=== PATIENT | female | born 1975 | race Caucasian/White ===

== ENCOUNTER 2024-01-03 17:57 | Observation (INO) | payer SELFPAY ==
[2024-01-03 18:32] LABS: Absolute Neutrophil Ct (ANC) 11.47 x10^3/uL (1.56-6.13); BASOPHIL % 0.6 % (0.1-1.2); Basophil (Absolute #) 0.08 x10^3/uL (0.01-0.08); Eosinophil (Absolute #) 0.14 x10^3/uL (0.04-0.36); Hemoglobin 14.3 g/dL (11.2-15.7); IMMATURE GRAN # 0.05 x10^3u/L (0.001-0.031); IMMATURE GRAN % 0.3 % (0.001-0.429); Lymphocyte (Absolute #) 2.09 x10^3/uL (1.18-3.74); Lymphocytes % 14.4 % (19.3-51.7); Mean Cell Volume 91.1 fL (79.4-94.8); Mean Platelet Volume 9.5 fL (9.4-12.3); Monocytes % 4.8 % (4.7-12.5); Neutrophil % 78.9 % (34.0-71.1); Platelet Count 387 x10^3/uL (182-369); Red Blood Count 4.61 x10^6/uL (3.93-5.22); White Blood Count 14.5 x10^3/uL (3.98-10.04)
[2024-01-03 18:41] LABS: HCG SERUM TEST NEGATIVE (NEGATIVE)
[2024-01-03 18:44] LABS: ALBUMIN 4.4 g/dL (3.5-5.0); ANION GAP 13.5 MEQ/L (5-15); BILIRUBIN,TOTAL 0.4 mg/dL (0.2-1.3); Calcium 9.4 mg/dL (8.4-10.2); Creatinine 1 0.93 mg/dL (0.52-1.04); EST GLOMERULAR FILTRATION RATE 75.8 ML/MIN; Potassium 3.3 mmol/L (3.5-5.1); Total Protein 7.8 g/dL (6.3-8.2)
--- NOTE | 2024-01-03 18:48 | ERPHSYRPT ---
- History of Present Illness Time Seen by Provider: 01/03/24 18:11 Historian: patient Exam Limitations: no limitations Patient Subjective Stated Complaint: C/O chest pain that started 3 days ago. Indicates pain started while at rest; no physical exertion. Triage Nursing Assessment: Patient is alert and oriented. She ambulated back to ER without difficulties. No SOB at this time. NO edema. Physician History: 48 years old female with history of hypertension, GERD presented in the ER with complaint of substernal chest pain off and on for the last 3 days with progressive worsening prior to arrival. Reports dull aching pain with no significant aggravating or relieving factors. Reports no palpitations or difficulty breathing associated with it. Reports some nausea but no vomiting. Denies any abdominal pain. No history of DVT/PE. No history of coronary artery disease. Nitro Today/Relief: no nitro taken today Aspirin Treatment Today: no aspirin today Allergies/Adverse Reactions: No Known Drug Allergies Allergy (Verified 01/04/24 00:03) Home Medications: Metoprolol Tartrate 50 mg [Lopressor 50 MG] 50 mg PO BID 01/03/24 [History] lisinopriL [Lisinopril] 40 mg PO DAILY 01/03/24 [History] Hx Tetanus, Diphtheria Vaccination/Date Given: Yes Hx Influenza Vaccination/Date Given: No Hx Pneumococcal Vaccination/Date Given: No Immunizations Up to Date: Yes Travel Risk - International Travel Have you traveled outside of the country in past 3 weeks: No - Emerging Infectious Disease Are you exhibiting symptoms associated with any current EIDs: No - Review of Systems Constitutional: No Symptoms Ears, Nose, & Throat: No Symptoms Respiratory: No Symptoms Cardiac: Chest Pain Abdominal/Gastrointestinal: Nausea Genitourinary Symptoms: No Symptoms Musculoskeletal: No Symptoms Neurological: No Symptoms Endocrine: No Symptoms Hematologic/Lymphatic: No Symptoms Immunological/Allergic: No Symptoms - Past Medical History Pertinent Past Medical History: Yes Cardiac History: Hypertension Musculoskeletal History: Fractures GI Medical History: Gallbladder Disease Other Medical History: mitralve value, menstral migraines - Past Surgical History Past Surgical History: Yes Gastrointestinal: Cholecystectomy - Female History Hx Now: No - Social History Smoking Status: Former smoker Exposure to second hand smoke: No Drug Use: none - Social Determinants of Health Will the patient participate in the screening: Yes Do you worry about a steady place to live?: No Do you have any problems with any of the following?: No known problems In the past 12 months,have you had to go without utilities?: No Transportation Issues: No Has anyone in your support network made you feel unsafe?: No Have you or anyone in your house had to go without enough: No - Nursing Vital Signs Nursing Vital Signs: Initial Vital Signs Temperature 97.7 F 01/03/24 18:20 Pulse Rate 90 01/03/24 18:20 Respiratory Rate 21 01/03/24 18:20 Blood Pressure 185/108 01/03/24 18:20 O2 Sat by Pulse Oximetry 94 L 01/03/24 18:20 Pain Scale Pain Intensity 2 - Physical Exam General Appearance: no apparent distress, alert Eye Exam: PERRL/EOMI Ears, Nose, Throat Exam: normal ENT inspection Neck Exam: normal inspection, full range of motion Respiratory Exam: normal breath sounds, lungs clear Cardiovascular Exam: regular rate/rhythm, normal heart sounds Gastrointestinal/Abdomen Exam: soft, normal bowel sounds, No tenderness Back Exam: normal inspection Extremity Exam: normal inspection, normal range of motion Neurologic Exam: alert, oriented x 3, cooperative Skin Exam: normal color SpO2 Interpretation: normal SpO2: 96 O2 Delivery: Room Air - Course EKG Interpreted by Me: RATE (94), Sinus Rhythm, NORMAL AXIS, NORMAL INTERVALS, Non-specific ST Changes Ordered Tests: Medication Summary Generic Name Dose Route Start Last Admin Trade Name Freq PRN Reason Stop Dose Admin Acetaminophen 325 mg 01/04/24 00:19 01/05/24 00:57 Acetaminophen 325 Mg Tablet PO 02/03/24 00:18 325 mg Q4H PRN PRN Administration PAIN, FEVER, HEADACHE Hydrocodone Bitart/Acetaminophen 1 tab 01/05/24 01:26 01/05/24 08:11 Hydrocodone/Apap 5/325 1 Tab Tablet PO 01/10/24 01:25 1 tab Q6H PRN PRN Administration PAIN Amlodipine Besylate 10 mg 01/05/24 10:00 01/05/24 10:05 Amlodipine Besylate 5 Mg Tablet PO 02/04/24 09:59 10 mg QAM LUIS Administration Enoxaparin Sodium 40 mg 01/04/24 10:00 01/05/24 10:05 Enoxaparin Sodium 40 Mg/0.4 Ml Syringe SQ 02/03/24 09:59 40 mg DAILY LUIS Administration Hydromorphone HCl 0.5 mg 01/04/24 00:21 01/04/24 05:00 Hydromorphone 1 Mg/1ml Inj IV 01/09/24 00:20 0.5 mg Q4H PRN PRN Administration PAIN Lisinopril 40 mg 01/04/24 10:00 01/05/24 10:05 Lisinopril 20 Mg Tablet PO 02/03/24 09:59 40 mg DAILY LUIS Administration Metoprolol Succinate 100 mg 01/05/24 22:00 Metoprolol Succinate 100 Mg Tablet.Sa PO 02/04/24 21:59 BID LUIS Metoprolol Tartrate 50 mg 01/05/24 12:58 Metoprolol Tartrate 50 Mg Tablet PO 01/05/24 12:59 STAT ONE Ondansetron HCl 4 mg 01/05/24 09:20 Ondansetron Hcl 4 Mg/2 Ml Vial IV 02/04/24 09:19 Q6H PRN PRN NAUSEA/VOMITING Pantoprazole Sodium 40 mg 01/04/24 10:00 01/05/24 10:04 Protonix (Pantoprazole) 40 Mg Tablet PO 02/03/24 09:59 40 mg DAILY LUIS Administration Discontinued Medications Generic Name Dose Route Start Last Admin Trade Name Freq PRN Reason Stop Dose Admin Al Hydrox/Mg Hydrox/Simethicone Confirm 01/03/24 19:00 Mag Hydrox/Al Hydrox/Simeth 30 Ml Udcup Administered 01/03/24 19:01 Dose 30 ml .ROUTE .STK-MED ONE Amlodipine Besylate 5 mg 01/05/24 10:00 Amlodipine Besylate 5 Mg Tablet PO 02/04/24 09:59 QAM LUIS Amlodipine Besylate 5 mg 01/04/24 13:20 01/04/24 14:40 Amlodipine Besylate 5 Mg Tablet PO 01/04/24 13:21 5 mg STAT ONE Administration Aspirin 324 mg 01/03/24 18:48 01/03/24 19:01 Aspirin 81 Mg Tab.Chew PO 01/03/24 18:49 324 mg STAT ONE Administration Aspirin Confirm 01/03/24 18:59 Aspirin 81 Mg Tab.Chew Administered 01/03/24 19:00 Dose 324 mg .ROUTE .STK-MED ONE Clonidine 0.1 mg 01/04/24 10:00 01/04/24 06:03 Clonidine Hcl 0.1 Mg Tablet PO 02/03/24 09:59 0.1 mg BID LUIS Administration Hydralazine HCl 10 mg 01/04/24 16:15 01/05/24 00:45 Hydralazine Hcl 20 Mg/Ml Vial IV 02/03/24 16:14 10 mg Q6H PRN PRN Administration Hydralazine HCl 50 mg 01/05/24 01:24 Hydralazine Hcl 25 Mg Tablet PO 02/04/24 01:23 Q6H PRN systolic blood pressure > 170 Hydrochlorothiazide 12.5 mg 01/05/24 10:00 01/05/24 10:05 Hydrochlorothiazide 25 Mg Tablet PO 02/04/24 09:59 12.5 mg DAILY LUIS Administration Hydrochlorothiazide 12.5 mg 01/04/24 13:30 01/04/24 14:40 Hydrochlorothiazide 25 Mg Tablet PO 01/04/24 13:31 12.5 mg STAT ONE Administration Sodium Chloride 1,000 mls @ 999 mls/hr 01/03/24 23:03 01/03/24 23:10 Sodium Chloride 0.9% 1000 Ml IV 01/04/24 00:03 999 mls/hr .Q1H1M STA Administration Sodium Chloride Confirm 01/03/24 23:03 Sodium Chloride 0.9% 1000 Ml Administered 01/03/24 23:04 Dose 1,000 mls @ ud .ROUTE .STK-MED ONE Potassium Chloride/Sodium Chloride 1,000 mls @ 75 mls/hr 01/04/24 00:30 01/05/24 03:06 Sodium Chloride 0.45% W/ 20 Meq Kcl IV 02/03/24 00:29 75 mls/hr .[id number] LUIS Administration Labetalol HCl 10 mg 01/03/24 20:31 01/03/24 20:35 Labetalol Hcl 20 Mg/4 Ml Disp.Syringe IV 01/03/24 20:32 10 mg STAT ONE Administration Labetalol HCl Confirm 01/03/24 20:34 Labetalol Hcl 20 Mg/4 Ml Disp.Syringe Administered 01/03/24 20:35 Dose 20 mg IV .STK-MED ONE Labetalol HCl 20 mg 01/04/24 04:30 01/04/24 04:40 Labetalol Hcl 20 Mg/4 Ml Disp.Syringe IV 02/03/24 04:29 20 mg STAT PRN Administration ELEVATED BLOOD PRESSURE Lidocaine HCl Confirm 01/03/24 19:00 Lidocaine Hcl 2% Viscous 15 Ml Udcup Administered 01/03/24 19:01 Dose 15 ml .ROUTE .STK-MED ONE Magnesium Hydroxide 45 ml 01/03/24 18:47 01/03/24 19:03 Mag Hydrx/Alum Hyd/Simeth/Lido 45 Ml Bottle PO 01/03/24 18:48 45 ml STAT ONE Administration Metoprolol Tartrate 50 mg 01/04/24 10:00 01/05/24 10:05 Metoprolol Tartrate 50 Mg Tablet PO 02/03/24 09:59 50 mg BID LUIS Administration Metoprolol Tartrate Confirm 01/04/24 00:33 Metoprolol Tartrate 50 Mg Tablet Administered 01/04/24 00:34 Dose 50 mg .ROUTE .STK-MED ONE Morphine Sulfate 4 mg 01/03/24 21:15 01/03/24 21:18 Morphine Sulfate 4 Mg/Ml Injection IV 01/03/24 21:16 4 mg STAT ONE Administration Morphine Sulfate Confirm 01/03/24 21:17 Morphine Sulfate 4 Mg/Ml Injection Administered 01/03/24 21:18 Dose 4 mg .ROUTE .STK-MED ONE Ondansetron HCl 4 mg 01/03/24 21:15 01/03/24 21:18 Ondansetron Hcl 4 Mg/2 Ml Vial IV 01/03/24 21:16 4 mg STAT ONE Administration Ondansetron HCl Confirm 01/03/24 21:17 Ondansetron Hcl 4 Mg/2 Ml Vial Administered 01/03/24 21:18 Dose 4 mg .ROUTE .STK-MED ONE Pantoprazole Sodium 40 mg 01/03/24 18:47 01/03/24 19:02 Pantoprazole 40 Mg Vial IV 01/03/24 18:48 40 mg STAT ONE Administration Pantoprazole Sodium Confirm 01/03/24 19:00 Pantoprazole 40 Mg Vial Administered 01/03/24 19:01 Dose 40 mg IV .STK-MED ONE Lab/Rad Data: Laboratory Result Diagrams 01/03/24 18:27 01/03/24 18:27 Laboratory Results 01/03/24 01/03/24 01/03/24 Range/Units 21:56 20:30 18:27 WBC (3.98-10.04) x10^3/uL RBC (3.93-5.22) x10^6/uL Hgb (11.2-15.7) g/dL Hct (34.1-44.9) % MCV (79.4-94.8) fL MCH (25.6-32.2) pg MCHC (32.2-35.5) g/dL RDW (11.7-14.4) % Plt Count (182-369) x10^3/uL MPV (9.4-12.3) fL Gran % (34.0-71.1) % Immature Gran % (Auto) (0.001-0.429) % Nucleat RBC Rel Count (0.00-0.2) % Eos # (Auto) (0.04-0.36) x10^3/uL Immature Gran # (Auto) (0.001-0.031) x10^3u/L Absolute Lymphs (auto) (1.18-3.74) x10^3/uL Absolute Monos (auto) (0.24-0.86) x10^3/uL Absolute Nucleated RBC (0.00-0.012) x10^3u/L Lymphocytes % (19.3-51.7) % Monocytes % (4.7-12.5) % Eosinophils % (0.7-5.8) % Basophils % (0.1-1.2) % Absolute Granulocytes (1.56-6.13) x10^3/uL Basophils # (0.01-0.08) x10^3/uL D-Dimer (0.0-0.50) mg/L Sodium (135-145) mmol/L Potassium (3.5-5.1) mmol/L Chloride (98-107) mmol/L Carbon Dioxide (22-30) mmol/L Anion Gap (5-15) MEQ/L BUN (7-17) mg/dL Creatinine (0.52-1.04) mg/dL Estimated GFR ML/MIN Glucose (74-106) mg/dL Calcium (8.4-10.2) mg/dL Total Bilirubin (0.2-1.3) mg/dL AST (14-36) U/L ALT (0-35) U/L Alkaline Phosphatase (38-126) U/L Troponin I < 0.012 (0.000-0.033) ng/mL Serum Total Protein (6.3-8.2) g/dL Albumin (3.5-5.0) g/dL Amylase 80 (30-110) U/L Lipase (23-300) U/L Serum HCG, Qual (NEGATIVE) Urine Opiates Level NEGATIVE (NEGATIVE) Ur Methadone NEGATIVE (NEGATIVE) Urine Barbiturates NEGATIVE (NEGATIVE) Ur Phencyclidine (PCP) NEGATIVE (NEGATIVE) Urine Amphetamine NEGATIVE (NEGATIVE) U Benzodiazepine Level NEGATIVE (NEGATIVE) Urine Cocaine NEGATIVE (NEGATIVE) Urine Marijuana (THC) NEGATIVE (NEGATIVE) 01/03/24 01/03/24 01/03/24 Range/Units 18:27 18:27 18:27 WBC (3.98-10.04) x10^3/uL RBC (3.93-5.22) x10^6/uL Hgb (11.2-15.7) g/dL Hct (34.1-44.9) % MCV (79.4-94.8) fL MCH (25.6-32.2) pg MCHC (32.2-35.5) g/dL RDW (11.7-14.4) % Plt Count (182-369) x10^3/uL MPV (9.4-12.3) fL Gran % (34.0-71.1) % Immature Gran % (Auto) (0.001-0.429) % Nucleat RBC Rel Count (0.00-0.2) % Eos # (Auto) (0.04-0.36) x10^3/uL Immature Gran # (Auto) (0.001-0.031) x10^3u/L Absolute Lymphs (auto) (1.18-3.74) x10^3/uL Absolute Monos (auto) (0.24-0.86) x10^3/uL Absolute Nucleated RBC (0.00-0.012) x10^3u/L Lymphocytes % (19.3-51.7) % Monocytes % (4.7-12.5) % Eosinophils % (0.7-5.8) % Basophils % (0.1-1.2) % Absolute Granulocytes (1.56-6.13) x10^3/uL Basophils # (0.01-0.08) x10^3/uL D-Dimer (0.0-0.50) mg/L Sodium (135-145) mmol/L Potassium (3.5-5.1) mmol/L Chloride (98-107) mmol/L Carbon Dioxide (22-30) mmol/L Anion Gap (5-15) MEQ/L BUN (7-17) mg/dL Creatinine (0.52-1.04) mg/dL Estimated GFR ML/MIN Glucose (74-106) mg/dL Calcium (8.4-10.2) mg/dL Total Bilirubin (0.2-1.3) mg/dL AST (14-36) U/L ALT (0-35) U/L Alkaline Phosphatase (38-126) U/L Troponin I < 0.012 (0.000-0.033) ng/mL Serum Total Protein (6.3-8.2) g/dL Albumin (3.5-5.0) g/dL Amylase (30-110) U/L Lipase 357 H (23-300) U/L Serum HCG, Qual NEGATIVE (NEGATIVE) Urine Opiates Level (NEGATIVE) Ur Methadone (NEGATIVE) Urine Barbiturates (NEGATIVE) Ur Phencyclidine (PCP) (NEGATIVE) Urine Amphetamine (NEGATIVE) U Benzodiazepine Level (NEGATIVE) Urine Cocaine (NEGATIVE) Urine Marijuana (THC) (NEGATIVE) 01/03/24 01/03/24 01/03/24 Range/Units 18:27 18:27 18:27 WBC 14.5 H (3.98-10.04) x10^3/uL RBC 4.61 (3.93-5.22) x10^6/uL Hgb 14.3 (11.2-15.7) g/dL Hct 42.0 (34.1-44.9) % MCV 91.1 (79.4-94.8) fL MCH 31.0 (25.6-32.2) pg MCHC 34.0 (32.2-35.5) g/dL RDW 12.0 (11.7-14.4) % Plt Count 387 H (182-369) x10^3/uL MPV 9.5 (9.4-12.3) fL Gran % 78.9 H (34.0-71.1) % Immature Gran % (Auto) 0.3 (0.001-0.429) % Nucleat RBC Rel Count 0.0 (0.00-0.2) % Eos # (Auto) 0.14 (0.04-0.36) x10^3/uL Immature Gran # (Auto) 0.05 H (0.001-0.031) x10^3u/L Absolute Lymphs (auto) 2.09 (1.18-3.74) x10^3/uL Absolute Monos (auto) 0.70 (0.24-0.86) x10^3/uL Absolute Nucleated RBC 0.00 (0.00-0.012) x10^3u/L Lymphocytes % 14.4 L (19.3-51.7) % Monocytes % 4.8 (4.7-12.5) % Eosinophils % 1.0 (0.7-5.8) % Basophils % 0.6 (0.1-1.2) % Absolute Granulocytes 11.47 H (1.56-6.13) x10^3/uL Basophils # 0.08 (0.01-0.08) x10^3/uL D-Dimer 0.90 H* (0.0-0.50) mg/L Sodium 137 (135-145) mmol/L Potassium 3.3 L (3.5-5.1) mmol/L Chloride 101 (98-107) mmol/L Carbon Dioxide 25 (22-30) mmol/L Anion Gap 13.5 (5-15) MEQ/L BUN 14 (7-17) mg/dL Creatinine 0.93 (0.52-1.04) mg/dL Estimated GFR 75.8 ML/MIN Glucose 151 H (74-106) mg/dL Calcium 9.4 (8.4-10.2) mg/dL Total Bilirubin 0.40 (0.2-1.3) mg/dL AST 29 (14-36) U/L ALT 34 (0-35) U/L Alkaline Phosphatase 61 (38-126) U/L Troponin I (0.000-0.033) ng/mL Serum Total Protein 7.8 (6.3-8.2) g/dL Albumin 4.4 (3.5-5.0) g/dL Amylase (30-110) U/L Lipase (23-300) U/L Serum HCG, Qual (NEGATIVE) Urine Opiates Level (NEGATIVE) Ur Methadone (NEGATIVE) Urine Barbiturates (NEGATIVE) Ur Phencyclidine (PCP) (NEGATIVE) Urine Amphetamine (NEGATIVE) U Benzodiazepine Level (NEGATIVE) Urine Cocaine (NEGATIVE) Urine Marijuana (THC) (NEGATIVE) - Progress Progress: improved, re-examined Air Movement: good Progress Note: 01/03/24 23:45 48 years old is evaluated for chest pain. The EKG is normal sinus rhythm with no ST elevations. She is given aspirin, GI cocktail and Protonix, on reevaluation her pain is minimally improved. Initial troponins are negative. Has a white count of 14, fairly unremarkable chemistries except for minimally elevated lipase of 357 with a normal amylase. Has elevated D-dimer and CTA is negative for pulmonary embolism or any other acute intrathoracic findings. Patient blood pressure was in 200s with a heart rate in low 100s/upper 90s, given labetalol 10 mg IV and pain medications later as patient initially did not want anything for pain. On reevaluation her blood pressure dropped and he 80s, started on fluids, it improved within few minutes to 123 systolic. Patient pain is still there but much improved. I believe patient drop of blood pressure is secondary to combination of labetalol and morphine. Second troponin came back negative as well. Because of patient's persistent pain and labile blood pressure, I have discussed with Dr. Trinh, reviewed history, workup and patient is accepted for admission. I have discussed the results of workup and plan of admission with patient and family which they understand and agree. 01/03/24 23:45 Blood Culture(s) Obtained: No Antibiotics given: No Discussed with : Other (Dr. Trinh hospitalist) Will see patient in: hospital (observation) Counseled pt/family regarding: lab results, diagnosis, rad results Medical Desision Making - Independent Historian Additional History obtained from: Spouse - Discussion of managment Care discussed with:: hospitalist Reviewed:: Test results Agreed on:: Treatment plan, place in obs Will see patient: in hospital - Diagnostic Testing Diagnostic test were ordered, analyzed, and reviewed by me: Yes Radiological Interpretation: Reviewed by me - Risk of complications The pt has a mod risk of morbidity or mortality based on: Need for prescription drug management The pt has a high risk of morbidity or mortality based on: Decision regarding hospitilization or escalation of hosp level of care - Departure Departure Disposition: Observation Clinical Impression: Uncontrolled hypertension, Chest pain Condition: Stable Critical Care Time: No
[2024-01-03] MEDS ORDERED: BABY ASPIRIN 81 MG CHEW ONE (18:59)
[2024-01-03] MEDS ORDERED: XYLOCAINE VISCOUS 2% 15 ML CUP ONE (19:00)
[2024-01-03] MEDS ORDERED: PROTONIX 40 MG IV IV ONE (19:00)
[2024-01-03] MEDS ORDERED: MAALOX ES 30 ML UNIT DOSE ONE (19:00)
[2024-01-03] MEDS: BABY ASPIRIN 81 MG CHEW PO ONE (19:01)
[2024-01-03] MEDS: PROTONIX 40 MG IV IV ONE (19:02)
[2024-01-03] MEDS: GI COCKTAIL 45 ML (Maalox/Lidocaine) PO ONE (19:03)
[2024-01-03] MEDS ORDERED: TRANDATE 20 MG/4 ML SYRINGE IV ONE (20:34)
[2024-01-03] MEDS: TRANDATE 20 MG/4 ML SYRINGE IV ONE (20:35)
[2024-01-03] MEDS ORDERED: MORPHINE SULFATE 4 MG INJ ONE (21:17)
[2024-01-03] MEDS ORDERED: Zofran 4 MG/2 ML VIAL ONE (21:17)
[2024-01-03] MEDS: MORPHINE SULFATE 4 MG INJ IV ONE (21:18)
[2024-01-03] MEDS: Zofran 4 MG/2 ML VIAL IV ONE (21:18)
[2024-01-03] MEDS ORDERED: Sodium Chloride 0.9% 1000 ML 1,000 ML ONE (23:03)
[2024-01-03] MEDS: Sodium Chloride 0.9% 1000 ML 1,000 ML IV STA (23:10)
--- NOTE | 2024-01-03 23:32 | XRAY ---
Indication: Chest pain 3 days. Elevated d-dimer. Multiple contiguous axial images obtained through the chest using 80 cc of Isovue-370 contrast and PE protocol. Comparison: None Adequate opacification pulmonary arteries to include the lobar and segmental branches. No pulmonary embolus. Heart is enlarged. Aorta is normal in course and caliber. Tiny mediastinal calcified node. No pathologic mediastinal/hilar lymphadenopathy. Lungs demonstrates small right upper lobe calcified granuloma and minimal bilateral dependent atelectasis. No suspicious pulmonary mass/nodule, infiltrate, or effusion. Bony thorax intact. Limited upper abdomen demonstrates mild fatty liver and cholecystectomy. Impression: 1. Negative pulmonary embolus. No acute cardiopulmonary abnormalities. 2. Incidental cardiomegaly, fatty liver, and old granulomatous disease.
[2024-01-04] MEDS ORDERED: Lopressor 50 MG ONE (00:33)
[2024-01-04] MEDS: Hydromorphone 1 mg/ml Injection IV PRN (00:34)
[2024-01-04] MEDS: Lopressor 50 MG PO SCH (00:35)
--- NOTE | 2024-01-04 00:41 | PCM.HP ---
History of Present Illness - Chief Complaint Chief Complaint: chest pain rule out Date: 01/03/24 History of Present Illness: Ms. MCKENZIE is a 48 year old female with a past medical history significant for hypertension, hyperlipidemia and obesity who presented to the hospital with complaints of chest pain on her L substernal region without radiation. She was initially markedly hypertensive with blood pressures in the 200 range, then received Labetalol IV as well as some morphine and protonix as GI cocktail. Her blood pressure then dropped into the 80s systolically. She is currently resting in bed, awake/alert. Still having some chest pain, rated 4/10 in severity. No fever/chills. No palpitations. No shortness of breath. No nausea, vomiting or diarrhea. No dysuria, hematuria or foamy urine. CTA chest negative for PE. First set of cardiac enzymes negative. - Review of Systems Constitutional: No Fever, No Chills Eyes: No Vision Changes Ears, Nose, & Throat: No Epistaxis Respiratory: No Cough, No Orthopnea, No Short Of Breath Cardiac: Chest Pain, No Edema, No Palpitations Abdominal/Gastrointestinal: No Abdominal Pain, No Nausea, No Vomiting, No Diarrhea Genitourinary Symptoms: No Dysuria, No Hematuria Musculoskeletal: No Arthralgias Skin: No Cellulitis, No Rash Neurological: Dizziness Psychological: No Suicidal Ideations Endocrine: No Polyuria, No Polydipsia Medications & Allergies Home Medications: Home Medication List Metoprolol Tartrate 50 mg [Lopressor 50 MG] 50 mg PO BID 01/03/24 [History Confirmed 01/04/24] lisinopriL [Lisinopril] 40 mg PO DAILY 01/03/24 [History Confirmed 01/04/24] Allergies/Adverse Reactions: Allergies Allergy/AdvReac Type Severity Reaction Status Date / Time No Known Drug Allergies Allergy Verified 01/04/24 00:03 - Past Medical History Past Medical History: Yes Neurological History: Migraines ENT History: Other Cardiac History: Hypertension Respiratory History: No Pertinent History Endocrine Medical History: No Pertinent History Musculoskelatal History: Fractures GI Medical History: Gallbladder Disease History: No Pertinent History Pyscho-Social History: No Pertinent History Reproductive Disorders: Menstrual Problems Comment: mitralve value, menstral migraines, right eye had blood vessel burst - Female History Are you now?: No - Past Surgical History Past Surgical History: Yes Neuro Surgical History: No Pertinent History Cardiac History: No Pertinent History Respiratory Surgery: No Pertinent History GI Surgical History: Cholecystectomy Genitourinary Surgical Hx: No Pertinent History Musculskeletal Surgical Hx: No Pertinent History Female Surgical History: No Pertinent History Other Surgical History: N/V after anesthesia - Social History Smoking Status: Former smoker How long have you smoked: 3 yrs Exposure to second hand smoke: No Alcohol: None Drug Use: none - Social Determinants of Health Will the patient participate in the screening: Yes Do you worry about a steady place to live?: No Do you have any problems with any of the following?: No known problems In the past 12 months,have you had to go without utilities?: No Have you or anyone in your house had to go without enough: No Transportation Issues: No Has anyone in your support network made you feel unsafe?: No Does the patient want assistance with any of the above?: No - Physical Exam Vital Signs: Vital Signs - 24 hr Temp Pulse Resp BP BP BP Pulse Ox 01/04/24 00:08 98 F 90 18 185/87 90 L 01/03/24 23:54 96 01/03/24 23:20 83 14 135/78 95 01/03/24 23:14 84 16 123/75 94 L 01/03/24 23:09 81 15 100/62 95 01/03/24 23:07 78 16 94/57 96 01/03/24 23:04 69 15 87/56 96 01/03/24 23:02 66 10 L 82/51 93 L 01/03/24 23:00 59 L 12 85/51 93 L 01/03/24 22:57 59 L 10 L 108/68 93 L 01/03/24 22:50 79 16 135/78 95 01/03/24 22:40 96 H 19 156/92 94 L 01/03/24 22:30 98 H 13 170/102 95 01/03/24 22:20 96 H 15 165/87 97 01/03/24 22:10 101 H 14 174/106 95 01/03/24 22:00 94 H 13 174/112 94 L 01/03/24 21:50 94 H 18 170/98 93 L 01/03/24 21:40 90 13 163/100 93 L 01/03/24 21:31 88 16 155/94 93 L 01/03/24 21:20 90 16 190/112 90 L 01/03/24 21:11 91 H 13 175/113 96 01/03/24 21:01 91 H 21 185/113 95 01/03/24 20:50 98.6 F 87 18 189/102 94 L 01/03/24 20:41 98 H 14 154/95 93 L 01/03/24 20:31 85 18 197/125 95 01/03/24 20:17 95 H 21 204/116 95 01/03/24 20:01 85 16 185/113 96 01/03/24 19:46 88 16 175/123 96 01/03/24 19:45 87 15 94 L 01/03/24 19:40 85 19 95 01/03/24 19:39 86 01/03/24 19:16 174/110 01/03/24 19:00 85 14 194/106 95 01/03/24 18:30 82 16 184/119 96 01/03/24 18:20 97.7 F 90 21 185/108 94 L General Appearance: no apparent distress Neurologic Exam: alert, oriented x 3 Ears, Nose, Throat Exam: dry mucous membranes Neck Exam: supple Respiratory Exam: lungs clear, No respiratory distress Cardiovascular Exam: regular rate/rhythm Gastrointestinal/Abdomen Exam: soft Extremity Exam: No pedal edema, No swelling Skin Exam: normal color, No rash Results - Labs Lab/Micro Results: Lab Results-Last 24 Hours 01/03/24 01/03/24 01/03/24 Range/Units 18:27 18:27 18:27 WBC 14.5 H (3.98-10.04) x10^3/uL RBC 4.61 (3.93-5.22) x10^6/uL Hgb 14.3 (11.2-15.7) g/dL Hct 42.0 (34.1-44.9) % MCV 91.1 (79.4-94.8) fL MCH 31.0 (25.6-32.2) pg MCHC 34.0 (32.2-35.5) g/dL RDW 12.0 (11.7-14.4) % Plt Count 387 H (182-369) x10^3/uL MPV 9.5 (9.4-12.3) fL Gran % 78.9 H (34.0-71.1) % Immature Gran % (Auto) 0.3 (0.001-0.429) % Nucleat RBC Rel Count 0.0 (0.00-0.2) % Eos # (Auto) 0.14 (0.04-0.36) x10^3/uL Immature Gran # (Auto) 0.05 H (0.001-0.031) x10^3u/L Absolute Lymphs (auto) 2.09 (1.18-3.74) x10^3/uL Absolute Monos (auto) 0.70 (0.24-0.86) x10^3/uL Absolute Nucleated RBC 0.00 (0.00-0.012) x10^3u/L Lymphocytes % 14.4 L (19.3-51.7) % Monocytes % 4.8 (4.7-12.5) % Eosinophils % 1.0 (0.7-5.8) % Basophils % 0.6 (0.1-1.2) % Absolute Granulocytes 11.47 H (1.56-6.13) x10^3/uL Basophils # 0.08 (0.01-0.08) x10^3/uL D-Dimer 0.90 H* (0.0-0.50) mg/L Sodium 137 (135-145) mmol/L Potassium 3.3 L (3.5-5.1) mmol/L Chloride 101 (98-107) mmol/L Carbon Dioxide 25 (22-30) mmol/L Anion Gap 13.5 (5-15) MEQ/L BUN 14 (7-17) mg/dL Creatinine 0.93 (0.52-1.04) mg/dL Estimated GFR 75.8 ML/MIN Glucose 151 H (74-106) mg/dL Calcium 9.4 (8.4-10.2) mg/dL Total Bilirubin 0.40 (0.2-1.3) mg/dL AST 29 (14-36) U/L ALT 34 (0-35) U/L Alkaline Phosphatase 61 (38-126) U/L Troponin I (0.000-0.033) ng/mL Serum Total Protein 7.8 (6.3-8.2) g/dL Albumin 4.4 (3.5-5.0) g/dL Amylase (30-110) U/L Lipase (23-300) U/L Serum HCG, Qual (NEGATIVE) 01/03/24 01/03/24 01/03/24 Range/Units 18:27 18:27 18:27 WBC (3.98-10.04) x10^3/uL RBC (3.93-5.22) x10^6/uL Hgb (11.2-15.7) g/dL Hct (34.1-44.9) % MCV (79.4-94.8) fL MCH (25.6-32.2) pg MCHC (32.2-35.5) g/dL RDW (11.7-14.4) % Plt Count (182-369) x10^3/uL MPV (9.4-12.3) fL Gran % (34.0-71.1) % Immature Gran % (Auto) (0.001-0.429) % Nucleat RBC Rel Count (0.00-0.2) % Eos # (Auto) (0.04-0.36) x10^3/uL Immature Gran # (Auto) (0.001-0.031) x10^3u/L Absolute Lymphs (auto) (1.18-3.74) x10^3/uL Absolute Monos (auto) (0.24-0.86) x10^3/uL Absolute Nucleated RBC (0.00-0.012) x10^3u/L Lymphocytes % (19.3-51.7) % Monocytes % (4.7-12.5) % Eosinophils % (0.7-5.8) % Basophils % (0.1-1.2) % Absolute Granulocytes (1.56-6.13) x10^3/uL Basophils # (0.01-0.08) x10^3/uL D-Dimer (0.0-0.50) mg/L Sodium (135-145) mmol/L Potassium (3.5-5.1) mmol/L Chloride (98-107) mmol/L Carbon Dioxide (22-30) mmol/L Anion Gap (5-15) MEQ/L BUN (7-17) mg/dL Creatinine (0.52-1.04) mg/dL Estimated GFR ML/MIN Glucose (74-106) mg/dL Calcium (8.4-10.2) mg/dL Total Bilirubin (0.2-1.3) mg/dL AST (14-36) U/L ALT (0-35) U/L Alkaline Phosphatase (38-126) U/L Troponin I < 0.012 (0.000-0.033) ng/mL Serum Total Protein (6.3-8.2) g/dL Albumin (3.5-5.0) g/dL Amylase (30-110) U/L Lipase 357 H (23-300) U/L Serum HCG, Qual NEGATIVE (NEGATIVE) 01/03/24 01/03/24 Range/Units 18:27 21:56 WBC (3.98-10.04) x10^3/uL RBC (3.93-5.22) x10^6/uL Hgb (11.2-15.7) g/dL Hct (34.1-44.9) % MCV (79.4-94.8) fL MCH (25.6-32.2) pg MCHC (32.2-35.5) g/dL RDW (11.7-14.4) % Plt Count (182-369) x10^3/uL MPV (9.4-12.3) fL Gran % (34.0-71.1) % Immature Gran % (Auto) (0.001-0.429) % Nucleat RBC Rel Count (0.00-0.2) % Eos # (Auto) (0.04-0.36) x10^3/uL Immature Gran # (Auto) (0.001-0.031) x10^3u/L Absolute Lymphs (auto) (1.18-3.74) x10^3/uL Absolute Monos (auto) (0.24-0.86) x10^3/uL Absolute Nucleated RBC (0.00-0.012) x10^3u/L Lymphocytes % (19.3-51.7) % Monocytes % (4.7-12.5) % Eosinophils % (0.7-5.8) % Basophils % (0.1-1.2) % Absolute Granulocytes (1.56-6.13) x10^3/uL Basophils # (0.01-0.08) x10^3/uL D-Dimer (0.0-0.50) mg/L Sodium (135-145) mmol/L Potassium (3.5-5.1) mmol/L Chloride (98-107) mmol/L Carbon Dioxide (22-30) mmol/L Anion Gap (5-15) MEQ/L BUN (7-17) mg/dL Creatinine (0.52-1.04) mg/dL Estimated GFR ML/MIN Glucose (74-106) mg/dL Calcium (8.4-10.2) mg/dL Total Bilirubin (0.2-1.3) mg/dL AST (14-36) U/L ALT (0-35) U/L Alkaline Phosphatase (38-126) U/L Troponin I < 0.012 (0.000-0.033) ng/mL Serum Total Protein (6.3-8.2) g/dL Albumin (3.5-5.0) g/dL Amylase 80 (30-110) U/L Lipase (23-300) U/L Serum HCG, Qual (NEGATIVE) - Radiology Impressions Radiology Exams & Impressions: Radiology Procedures Category Date Time Status CHEST WITH CONTRAST [CT] Stat Exams 01/03/24 19:13 Completed - Other Procedures and Tests Respiratory Therapy 01/03/24 23:55 Respiratory Therapy Consult ONCE 01/04/24 00:19 EKG PRN Assessment/Plan (1) Chest pain Current Visit: Yes Status: Acute Assessment & Plan: Does not appear to be cardiac with negative troponin and neg CTA chest 1. Admit for observation 2. Trend troponin 3. Pain control 4. PPI Code(s): R07.9 - CHEST PAIN, UNSPECIFIED (2) Uncontrolled hypertension Current Visit: Yes Status: Acute Assessment & Plan: Likely exacerbated by pain, but need to rule out secondary causes 1. Continue current bp meds 2. Renal artery doppler 3. Check metanephrines 4. Monitor blood pressure readings Code(s): I10 - ESSENTIAL (PRIMARY) HYPERTENSION Telemedicine Encounter - Telemedicine Encounter Telemedicine Encounter: "The entirety of this encounter was performed via Telemedicine" This visit was performed using real-time audio and video connection between my location and thepatients locationwith the assistance of a surrogateat the patients location. Written or verbal consent was obtained from the patient/guardian to perform this visit [email or web address]. Any patient questions regarding the telemedicine interaction were answered.
[2024-01-04] MEDS: SODIUM CHLORIDE 0.45% W/ 20 mEq KCL 1,000 ML IV SCH (00:44)
[2024-01-04] MEDS: TRANDATE 20 MG/4 ML SYRINGE IV PRN (04:40)
[2024-01-04 05:24] LABS: Hemoglobin 12.6 g/dL (11.2-15.7); Mean Cell Volume 93.1 fL (79.4-94.8); Mean Corpuscular Hemoglobin 30.9 pg (25.6-32.2); Mean Corpuscular Hgb Concent. 33.2 g/dL (32.2-35.5); Mean Platelet Volume 9.6 fL (9.4-12.3); Platelet Count 355 x10^3/uL (182-369); Red Blood Count 4.08 x10^6/uL (3.93-5.22); Red Cell Distribution Width 12.2 % (11.7-14.4); White Blood Count 13.8 x10^3/uL (3.98-10.04)
[2024-01-04 05:58] LABS: ANION GAP 12.9 MEQ/L (5-15); Calcium 8.6 mg/dL (8.4-10.2); Creatinine 1 0.77 mg/dL (0.52-1.04); EST GLOMERULAR FILTRATION RATE 95.1 ML/MIN; Potassium 4.1 mmol/L (3.5-5.1)
[2024-01-04] MEDS: CLONIDINE 0.1 MG TABLET PO SCH (06:03)
[2024-01-04] MEDS: TYLENOL 325 MG PO PRN (07:49)
[2024-01-04 10:08] LABS: Amphetamine,Urine NEGATIVE (NEGATIVE); Barbiturate,Urine NEGATIVE (NEGATIVE); Benzodiazepine,Urine NEGATIVE (NEGATIVE); Cocaine,Urine NEGATIVE (NEGATIVE); Methadone,Urine NEGATIVE (NEGATIVE); Opiate,Urine NEGATIVE (NEGATIVE); PCP,Urine NEGATIVE (NEGATIVE); THC,Urine NEGATIVE (NEGATIVE)
[2024-01-04] MEDS: ENOXAPARIN SODIUM SQ SCH (10:31)
[2024-01-04] MEDS: Zestril 20 MG PO SCH (10:31)
[2024-01-04] MEDS: Protonix 40MG Tablet PO SCH (10:31)
--- NOTE | 2024-01-04 12:00 | PCM.CONS ---
History of Present Illness - Date of Consult Date of Encounter: 01/04/24 Consulting [employer]: QUE BALTAZAR MD Requesting Provider: Attending Provider: KIET RAI MD Primary Care Provider: PCP: MIREILLE FROST - Consult Narrative Reason for Consult: Continued chest pain HPI: Patient is a 48 yo female with history of HTN and migraines who presented with a 3-day history of constant chest discomfort (2 types) prompting consultation. She has a constant soreness on top of her left breast which radiates to her left axilla. She also has a band-like squeezing discomfort across her chest located under her breasts. The intensity has waxed and waned from a 2 to 7 on a scale of 10. It was worse yesterday prompting her presentation. She noticed the discomfort is more intense with her normal activities. They are not related to meals. She has had occasional shortness of breath, diaphoresis, and shortness of breath with this discomfort. She experienced the same chest soreness when she had similar BP readings one year ago which resolved after several days with control of her BP. She has never experienced this band-like discomfort before. She denies a pleuritic or positional component to her chest discomfort. Yesterday evening she was treated with Labetalol followed by morphine sulfate 4mg IVP. Her SBP dropped into 80s 2 hours later. She felt light-headed and her chest discomfort was temporarily gone. She was given one liter of normal saline with increase in her BP and return of her chest discomforts.Serial troponin-I HS was negative x3. D-dimer was elevated at 0.90 and CTA of pulmonary arteries were negative for pulmonary emboli. Her BP remains severely elevated. cc:: The requesting physician will be sent a copy of the consult. Review of Systems - Review of Systems All systems: as per HPI (Otherwise negative.) - Past Medical History Past Medical History: Yes Neurological History: Migraines ENT History: Other Cardiac History: Hypertension Respiratory History: No Pertinent History Endocrine Medical History: No Pertinent History Musculoskelatal History: Fractures GI Medical History: Gallbladder Disease History: No Pertinent History Pyscho-Social History: No Pertinent History Reproductive Disorders: Menstrual Problems Comment: mitralve value, menstral migraines, right eye had blood vessel burst - Female History Are you now?: No - Past Surgical History Past Surgical History: Yes Neuro Surgical History: No Pertinent History Cardiac History: No Pertinent History Respiratory Surgery: No Pertinent History GI Surgical History: Cholecystectomy Genitourinary Surgical Hx: No Pertinent History Musculskeletal Surgical Hx: No Pertinent History Female Surgical History: No Pertinent History Other Surgical History: N/V after anesthesia - Social History Smoking Status: Former smoker How long have you smoked: 3 yrs Exposure to second hand smoke: No Alcohol: None Drug Use: none - Social Determinants of Health Will the patient participate in the screening: Yes Do you worry about a steady place to live?: No Do you have any problems with any of the following?: No known problems In the past 12 months,have you had to go without utilities?: No Have you or anyone in your house had to go without enough: No Transportation Issues: No Has anyone in your support network made you feel unsafe?: No Does the patient want assistance with any of the above?: No Medications & Allergies Home Medications: Home Medication List Metoprolol Tartrate 50 mg [Lopressor 50 MG] 50 mg PO BID 01/03/24 [History Confirmed 01/04/24] lisinopriL [Lisinopril] 40 mg PO DAILY 01/03/24 [History Confirmed 01/04/24] Allergies/Adverse Reactions: Allergies Allergy/AdvReac Type Severity Reaction Status Date / Time No Known Drug Allergies Allergy Verified 01/04/24 00:03 Exam - Vitals Vital Signs: Vital Signs - 24 hr Temp Pulse Resp BP BP BP Pulse Ox 01/04/24 05:15 183/106 01/04/24 04:40 198/91 98 01/04/24 04:00 97.3 F 81 18 198/91 96 01/04/24 00:45 92 L 01/04/24 00:08 98 F 90 18 185/87 90 L 01/03/24 23:54 96 01/03/24 23:20 83 14 135/78 95 01/03/24 23:14 84 16 123/75 94 L 01/03/24 23:09 81 15 100/62 95 01/03/24 23:07 78 16 94/57 96 01/03/24 23:04 69 15 87/56 96 01/03/24 23:02 66 10 L 82/51 93 L 01/03/24 23:00 59 L 12 85/51 93 L 01/03/24 22:57 59 L 10 L 108/68 93 L 01/03/24 22:50 79 16 135/78 95 01/03/24 22:40 96 H 19 156/92 94 L 01/03/24 22:30 98 H 13 170/102 95 01/03/24 22:20 96 H 15 165/87 97 01/03/24 22:10 101 H 14 174/106 95 01/03/24 22:00 94 H 13 174/112 94 L 01/03/24 21:50 94 H 18 170/98 93 L 01/03/24 21:40 90 13 163/100 93 L 01/03/24 21:31 88 16 155/94 93 L 01/03/24 21:20 90 16 190/112 90 L 01/03/24 21:11 91 H 13 175/113 96 01/03/24 21:01 91 H 21 185/113 95 01/03/24 20:50 98.6 F 87 18 189/102 94 L 01/03/24 20:41 98 H 14 154/95 93 L 01/03/24 20:31 85 18 197/125 95 01/03/24 20:17 95 H 21 204/116 95 01/03/24 20:01 85 16 185/113 96 01/03/24 19:46 88 16 175/123 96 01/03/24 19:45 87 15 94 L 01/03/24 19:40 85 19 95 01/03/24 19:39 86 01/03/24 19:16 174/110 01/03/24 19:00 85 14 194/106 95 01/03/24 18:30 82 16 184/119 96 01/03/24 18:20 97.7 F 90 21 185/108 94 L General:: alert and oriented x 4, no acute distress HEENT: EOMI, No JVD Cardiovascular Exam: regular rate/rhythm, normal heart sounds, No murmur, No friction rub, No gallop Respiratory Exam: normal breath sounds SpO2: 98 Gastrointestinal/Abdomen Exam: normal bowel sounds Skin Exam: warm Extremity Exam: edema (1+ edema half way up to knees bilaterally.) Neurologic: esthetician spa II-XII grossly intact, No motor deficits Results Vital Signs: Vital Signs - 24 hr Temp Pulse Resp BP BP BP Pulse Ox 08/16/24 05:15 183/106 01/04/24 04:40 198/91 98 01/04/24 04:00 97.3 F 81 18 198/91 96 01/04/24 00:45 92 L 01/04/24 00:08 98 F 90 18 185/87 90 L 01/03/24 23:54 96 01/03/24 23:20 83 14 135/78 95 01/03/24 23:14 84 16 123/75 94 L 01/03/24 23:09 81 15 100/62 95 01/03/24 23:07 78 16 94/57 96 01/03/24 23:04 69 15 87/56 96 01/03/24 23:02 66 10 L 82/51 93 L 01/03/24 23:00 59 L 12 85/51 93 L 01/03/24 22:57 59 L 10 L 108/68 93 L 01/03/24 22:50 79 16 135/78 95 01/03/24 22:40 96 H 19 156/92 94 L 01/03/24 22:30 98 H 13 170/102 95 01/03/24 22:20 96 H 15 165/87 97 01/03/24 22:10 101 H 14 174/106 95 01/03/24 22:00 94 H 13 174/112 94 L 01/03/24 21:50 94 H 18 170/98 93 L 01/03/24 21:40 90 13 163/100 93 L 01/03/24 21:31 88 16 155/94 93 L 01/03/24 21:20 90 16 190/112 90 L 01/03/24 21:11 91 H 13 175/113 96 01/03/24 21:01 91 H 21 185/113 95 01/03/24 20:50 98.6 F 87 18 189/102 94 L 01/03/24 20:41 98 H 14 154/95 93 L 01/03/24 20:31 85 18 197/125 95 01/03/24 20:17 95 H 21 204/116 95 01/03/24 20:01 85 16 185/113 96 01/03/24 19:46 88 16 175/123 96 01/03/24 19:45 87 15 94 L 01/03/24 19:40 85 19 95 01/03/24 19:39 86 01/03/24 19:16 174/110 01/03/24 19:00 85 14 194/106 95 01/03/24 18:30 82 16 184/119 96 01/03/24 18:20 97.7 F 90 21 185/108 94 L Pain Assessment - Last Documented Pain Intensity 2 Pain Scale Used 0-10 Pain Scale Intake and Output: Intake & Output 01/01/24 01/02/24 01/03/24 01/04/24 11:59 11:59 11:59 11:59 Intake Total 465 Balance 465 Weight 78.2 kg LAB: I have reviewed the Labs in [facility]. Radiology Exams: Radiology Procedures Category Date Time Status ARTERIAL ABDOMINAL (RENAL) [US] Routine Exams 01/04/24 00:43 Ordered CHEST WITH CONTRAST [CT] Stat Exams 01/03/24 19:13 Completed ECHO W/2D AND DOPPLER [US] Routine Exams 01/04/24 07:46 Taken US ABDOMEN LIMITED [ABDOMINAL-LIMITED] [US] Routine Exams 01/04/24 11:13 Ordered CTA of Pulmonary Arteries 01/03/2024: 1. Negative pulmonary embolus. 2. No acute cardiopulmonary abnormalities. . Heart is enlarged. Aorta is normal in course and caliber. 3. Incidental fatty liver, and old granulomatous disease. Tracing 1 Attestation: I have reviewed this EKG and interpreted as documented below. EKG Narrative: 01/03/2024 x3: Sinus rhythm at 58-95 bpm. LAE. LVH by voltage. Assessment & Plan (1) Chest pain Current Visit: Yes Status: Acute Assessment & Plan: Nonspecific but appears to correlate to severe hypertension. Chest CT with contrast without evidence of aortic disease or pulmonary emboli. Code(s): R07.9 - CHEST PAIN, UNSPECIFIED (2) Hypertensive urgency Current Visit: Yes Status: Acute Assessment & Plan: Remains uncontrolled. Transient hypotension after recieving labetalol and morphine last night responded to fluid bolus. Will start HCTZ 12.5 mg daily and amlodipine 5 mg daily. History of LE edema on unknown dose of amlodipine (hopefully 10 mg so she could tolerate 5 mg). Will discontinue clonidine due to its side effect profile. Will evaluate for hypertensive heart disease on today's echo. Code(s): I16.0 - HYPERTENSIVE URGENCY (3) Bilateral lower extremity edema Current Visit: Yes Status: Acute Code(s): R60.0 - LOCALIZED EDEMA (4) Pure hypercholesterolemia Current Visit: Yes Status: Chronic Assessment & Plan: Previously treated with pravastatin. Will check fasting lipid profile. Code(s): E78.00 - PURE HYPERCHOLESTEROLEMIA, UNSPECIFIED (5) Mitral valve disease Current Visit: Yes Status: Acute Assessment & Plan: Diagnosed with mitral valve disease in 1996. MR murmur not appreciated in the left lateral decubitus position. Will determine if she has MV disease on today's echo. Code(s): I05.9 - RHEUMATIC MITRAL VALVE DISEASE, UNSPECIFIED - Encounter Encounter: "The entirety of this encounter was performed via Telemedicine using audio and visual " Addendum: Patients systolic blood pressure decreased to the 140s 8/ night. Her chest discomfort resolved though her bandlike sensation continues. Today's echo report: 1. Moderately dilated right atrium. Other chamber sizes are normal. 2. Mild concentric left ventricular hypertrophy. 3. Normal left ventricular systolic function without focal wall motion abnormalities. Estimated EF 65%. 4. Mild diastolic dysfunction. 5. Normal right ventricular systolic function. 6. Structurally normal valves without valvular regurgitation. 7. Unable to estimate PA systolic pressure. 8. Normal right atrial pressure. 9. No pericardial effusion. As per consult note. Cannot explain why one type of chest discomfort resolved with better BP control but not the other type. Evidence of hypertensive heart disease with mild LVH and mild diastolic dysfunction. No evidence of mitral valve disease on echo (no evidence of MVP or MR). Anticipate discharge tomorrow morning. Will sign off. Please call my service if questions arise. Que Baltazar MD [facility] [phone]
--- NOTE | 2024-01-04 13:44 | PCM.DS ---
Discharge Summary Date of Admission: 01/03/24 23:48 Date of Discharge: 01/04/24 Admitting Physician: KIET RAI MD Consults: Consults on Case 01/04/24 00:23 Case Management SDOH DC Needs Assessment ROUTINE 01/04/24 11:16 Consult Cardiology ROUTINE Primary Care Provider: MIREILLE FROST Allergies Allergies No Known Drug Allergies Allergy (Verified 01/04/24 00:03) Hospital Summary - Hospital Course Hospital Course: 01/04/24 Ms. MCKENZIE is a 48 year old female with a past medical history significant for hypertension, hyperlipidemia and obesity. She presented to the hospital on 01/03/24 with complaints of chest pain on her L substernal region without radiation. She was initially markedly hypertensive with blood pressures in the 200 range, then received Labetalol IV as well as some morphine and protonix as GI cocktail. Her blood pressure then dropped into the 80s systolically. She is c urrently resting in bed, awake/alert. Still having some chest pain, rated 4/10 in severity and radiating to her left shoulder. No fever/chills. No palpitations. No shortness of breath. No nausea, vomiting or diarrhea. No dysuria, hematuria or foamy urine. CTA chest negative for PE. Trop x3 negative. Cardioogy consulted. Echo ordered as CT shows cardiomegaly. Renal and LUQ US pending. reports she has recurrent episode Q6 months of extremely elevated BP. She is unsure why this happens. It appears cardiology added an extra dose of amlodipide today to decrease BP. Pt denies Abd pain, SOB, N/V/D. If BP improves she could d/c today. - Vitals & Intake/Output Vital Signs: Vital Signs Temperature 97.3 F 01/04/24 04:00 Pulse Rate 81 01/04/24 04:00 Respiratory Rate 18 01/04/24 04:00 Blood Pressure 183/106 01/04/24 05:15 O2 Sat by Pulse Oximetry 98 01/04/24 12:05 Intake & Output: Intake & Output 01/02/24 01/03/24 01/04/24 01/05/24 11:59 11:59 11:59 11:59 Intake Total 465 Balance 465 Weight 78.2 kg - Lab Result Diagrams: 01/04/24 04:45 01/04/24 04:45 Lab Results-Last 24 Hrs: Lab Results-Last 24 Hours 01/03/24 01/03/24 01/03/24 Range/Units 18:27 18:27 18:27 WBC 14.5 H (3.98-10.04) x10^3/uL RBC 4.61 (3.93-5.22) x10^6/uL Hgb 14.3 (11.2-15.7) g/dL Hct 42.0 (34.1-44.9) % MCV 91.1 (79.4-94.8) fL MCH 31.0 (25.6-32.2) pg MCHC 34.0 (32.2-35.5) g/dL RDW 12.0 (11.7-14.4) % Plt Count 387 H (182-369) x10^3/uL MPV 9.5 (9.4-12.3) fL Gran % 78.9 H (34.0-71.1) % Immature Gran % (Auto) 0.3 (0.001-0.429) % Nucleat RBC Rel Count 0.0 (0.00-0.2) % Eos # (Auto) 0.14 (0.04-0.36) x10^3/uL Immature Gran # (Auto) 0.05 H (0.001-0.031) x10^3u/L Absolute Lymphs (auto) 2.09 (1.18-3.74) x10^3/uL Absolute Monos (auto) 0.70 (0.24-0.86) x10^3/uL Absolute Nucleated RBC 0.00 (0.00-0.012) x10^3u/L Lymphocytes % 14.4 L (19.3-51.7) % Monocytes % 4.8 (4.7-12.5) % Eosinophils % 1.0 (0.7-5.8) % Basophils % 0.6 (0.1-1.2) % Absolute Granulocytes 11.47 H (1.56-6.13) x10^3/uL Basophils # 0.08 (0.01-0.08) x10^3/uL D-Dimer 0.90 H* (0.0-0.50) mg/L Sodium 137 (135-145) mmol/L Potassium 3.3 L (3.5-5.1) mmol/L Chloride 101 (98-107) mmol/L Carbon Dioxide 25 (22-30) mmol/L Anion Gap 13.5 (5-15) MEQ/L BUN 14 (7-17) mg/dL Creatinine 0.93 (0.52-1.04) mg/dL Estimated GFR 75.8 ML/MIN Glucose 151 H (74-106) mg/dL Calcium 9.4 (8.4-10.2) mg/dL Total Bilirubin 0.40 (0.2-1.3) mg/dL AST 29 (14-36) U/L ALT 34 (0-35) U/L Alkaline Phosphatase 61 (38-126) U/L Troponin I (0.000-0.033) ng/mL Serum Total Protein 7.8 (6.3-8.2) g/dL Albumin 4.4 (3.5-5.0) g/dL Amylase (30-110) U/L Lipase (23-300) U/L Serum HCG, Qual (NEGATIVE) Urine Opiates Level (NEGATIVE) Ur Methadone (NEGATIVE) Urine Barbiturates (NEGATIVE) Ur Phencyclidine (PCP) (NEGATIVE) Urine Amphetamine (NEGATIVE) U Benzodiazepine Level (NEGATIVE) Urine Cocaine (NEGATIVE) Urine Marijuana (THC) (NEGATIVE) 01/03/24 01/03/24 01/03/24 Range/Units 18:27 18:27 18:27 WBC (3.98-10.04) x10^3/uL RBC (3.93-5.22) x10^6/uL Hgb (11.2-15.7) g/dL Hct (34.1-44.9) % MCV (79.4-94.8) fL MCH (25.6-32.2) pg MCHC (32.2-35.5) g/dL RDW (11.7-14.4) % Plt Count (182-369) x10^3/uL MPV (9.4-12.3) fL Gran % (34.0-71.1) % Immature Gran % (Auto) (0.001-0.429) % Nucleat RBC Rel Count (0.00-0.2) % Eos # (Auto) (0.04-0.36) x10^3/uL Immature Gran # (Auto) (0.001-0.031) x10^3u/L Absolute Lymphs (auto) (1.18-3.74) x10^3/uL Absolute Monos (auto) (0.24-0.86) x10^3/uL Absolute Nucleated RBC (0.00-0.012) x10^3u/L Lymphocytes % (19.3-51.7) % Monocytes % (4.7-12.5) % Eosinophils % (0.7-5.8) % Basophils % (0.1-1.2) % Absolute Granulocytes (1.56-6.13) x10^3/uL Basophils # (0.01-0.08) x10^3/uL D-Dimer (0.0-0.50) mg/L Sodium (135-145) mmol/L Potassium (3.5-5.1) mmol/L Chloride (98-107) mmol/L Carbon Dioxide (22-30) mmol/L Anion Gap (5-15) MEQ/L BUN (7-17) mg/dL Creatinine (0.52-1.04) mg/dL Estimated GFR ML/MIN Glucose (74-106) mg/dL Calcium (8.4-10.2) mg/dL Total Bilirubin (0.2-1.3) mg/dL AST (14-36) U/L ALT (0-35) U/L Alkaline Phosphatase (38-126) U/L Troponin I < 0.012 (0.000-0.033) ng/mL Serum Total Protein (6.3-8.2) g/dL Albumin (3.5-5.0) g/dL Amylase (30-110) U/L Lipase 357 H (23-300) U/L Serum HCG, Qual NEGATIVE (NEGATIVE) Urine Opiates Level (NEGATIVE) Ur Methadone (NEGATIVE) Urine Barbiturates (NEGATIVE) Ur Phencyclidine (PCP) (NEGATIVE) Urine Amphetamine (NEGATIVE) U Benzodiazepine Level (NEGATIVE) Urine Cocaine (NEGATIVE) Urine Marijuana (THC) (NEGATIVE) 01/03/24 01/03/24 01/03/24 Range/Units 18:27 20:30 21:56 WBC (3.98-10.04) x10^3/uL RBC (3.93-5.22) x10^6/uL Hgb (11.2-15.7) g/dL Hct (34.1-44.9) % MCV (79.4-94.8) fL MCH (25.6-32.2) pg MCHC (32.2-35.5) g/dL RDW (11.7-14.4) % Plt Count (182-369) x10^3/uL MPV (9.4-12.3) fL Gran % (34.0-71.1) % Immature Gran % (Auto) (0.001-0.429) % Nucleat RBC Rel Count (0.00-0.2) % Eos # (Auto) (0.04-0.36) x10^3/uL Immature Gran # (Auto) (0.001-0.031) x10^3u/L Absolute Lymphs (auto) (1.18-3.74) x10^3/uL Absolute Monos (auto) (0.24-0.86) x10^3/uL Absolute Nucleated RBC (0.00-0.012) x10^3u/L Lymphocytes % (19.3-51.7) % Monocytes % (4.7-12.5) % Eosinophils % (0.7-5.8) % Basophils % (0.1-1.2) % Absolute Granulocytes (1.56-6.13) x10^3/uL Basophils # (0.01-0.08) x10^3/uL D-Dimer (0.0-0.50) mg/L Sodium (135-145) mmol/L Potassium (3.5-5.1) mmol/L Chloride (98-107) mmol/L Carbon Dioxide (22-30) mmol/L Anion Gap (5-15) MEQ/L BUN (7-17) mg/dL Creatinine (0.52-1.04) mg/dL Estimated GFR ML/MIN Glucose (74-106) mg/dL Calcium (8.4-10.2) mg/dL Total Bilirubin (0.2-1.3) mg/dL AST (14-36) U/L ALT (0-35) U/L Alkaline Phosphatase (38-126) U/L Troponin I < 0.012 (0.000-0.033) ng/mL Serum Total Protein (6.3-8.2) g/dL Albumin (3.5-5.0) g/dL Amylase 80 (30-110) U/L Lipase (23-300) U/L Serum HCG, Qual (NEGATIVE) Urine Opiates Level NEGATIVE (NEGATIVE) Ur Methadone NEGATIVE (NEGATIVE) Urine Barbiturates NEGATIVE (NEGATIVE) Ur Phencyclidine (PCP) NEGATIVE (NEGATIVE) Urine Amphetamine NEGATIVE (NEGATIVE) U Benzodiazepine Level NEGATIVE (NEGATIVE) Urine Cocaine NEGATIVE (NEGATIVE) Urine Marijuana (THC) NEGATIVE (NEGATIVE) 01/04/24 01/04/24 01/04/24 Range/Units 04:45 04:45 04:45 WBC 13.8 H (3.98-10.04) x10^3/uL RBC 4.08 (3.93-5.22) x10^6/uL Hgb 12.6 (11.2-15.7) g/dL Hct 38.0 (34.1-44.9) % MCV 93.1 (79.4-94.8) fL MCH 30.9 (25.6-32.2) pg MCHC 33.2 (32.2-35.5) g/dL RDW 12.2 (11.7-14.4) % Plt Count 355 (182-369) x10^3/uL MPV 9.6 (9.4-12.3) fL Gran % (34.0-71.1) % Immature Gran % (Auto) (0.001-0.429) % Nucleat RBC Rel Count (0.00-0.2) % Eos # (Auto) (0.04-0.36) x10^3/uL Immature Gran # (Auto) (0.001-0.031) x10^3u/L Absolute Lymphs (auto) (1.18-3.74) x10^3/uL Absolute Monos (auto) (0.24-0.86) x10^3/uL Absolute Nucleated RBC (0.00-0.012) x10^3u/L Lymphocytes % (19.3-51.7) % Monocytes % (4.7-12.5) % Eosinophils % (0.7-5.8) % Basophils % (0.1-1.2) % Absolute Granulocytes (1.56-6.13) x10^3/uL Basophils # (0.01-0.08) x10^3/uL D-Dimer (0.0-0.50) mg/L Sodium 138 (135-145) mmol/L Potassium 4.1 D (3.5-5.1) mmol/L Chloride 103 (98-107) mmol/L Carbon Dioxide 26 (22-30) mmol/L Anion Gap 12.9 (5-15) MEQ/L BUN 10 (7-17) mg/dL Creatinine 0.77 (0.52-1.04) mg/dL Estimated GFR 95.1 ML/MIN Glucose 120 H (74-106) mg/dL Calcium 8.6 (8.4-10.2) mg/dL Total Bilirubin (0.2-1.3) mg/dL AST (14-36) U/L ALT (0-35) U/L Alkaline Phosphatase (38-126) U/L Troponin I < 0.012 (0.000-0.033) ng/mL Serum Total Protein (6.3-8.2) g/dL Albumin (3.5-5.0) g/dL Amylase (30-110) U/L Lipase (23-300) U/L Serum HCG, Qual (NEGATIVE) Urine Opiates Level (NEGATIVE) Ur Methadone (NEGATIVE) Urine Barbiturates (NEGATIVE) Ur Phencyclidine (PCP) (NEGATIVE) Urine Amphetamine (NEGATIVE) U Benzodiazepine Level (NEGATIVE) Urine Cocaine (NEGATIVE) Urine Marijuana (THC) (NEGATIVE) - Radiology Exams Ordered Rad Exams-Entire Visit: Radiology Procedures Category Date Time Status ARTERIAL ABDOMINAL (RENAL) [US] Routine Exams 01/04/24 00:43 Ordered CHEST WITH CONTRAST [CT] Stat Exams 01/03/24 19:13 Completed ECHO W/2D AND DOPPLER [US] Routine Exams 01/04/24 07:46 Taken US ABDOMEN LIMITED [ABDOMINAL-LIMITED] [US] Routine Exams 01/04/24 11:13 Ordered - Procedures and Test Procedures and Tests throughout Hospitalization: Therapy Orders & Screens 01/03/24 23:55 Respiratory Therapy Consult ONCE Comment: Reason For Exam: 01/04/24 00:19 EKG PRN Comment: Discharge Exam General Appearance: no apparent distress, alert Neurologic Exam: alert, oriented x 3, cooperative, normal mood/affect, nml cerebellar function, sensation nml, No motor deficits Eye Exam: PERRL, EOMI, eyes nml inspection Ears, Nose, Throat Exam: normal ENT inspection, pharynx normal, moist mucous membranes Neck Exam: normal inspection, non-tender, supple, full range of motion Respiratory Exam: normal breath sounds, lungs clear, No respiratory distress Cardiovascular Exam: regular rate/rhythm, normal heart sounds Gastrointestinal/Abdomen Exam: soft, No tenderness, No mass Pelvic Exam: deferred Rectal Exam: deferred Back Exam: normal inspection, normal range of motion, No CVA tenderness, No vertebral tenderness Extremity Exam: normal inspection, normal range of motion Skin Exam: normal color, warm, dry - Discharge Disposition: Home, Self-Care Condition: Stable Prescriptions: No Action lisinopriL [Lisinopril] 40 mg PO DAILY Metoprolol Tartrate 50 mg [Lopressor 50 MG] 50 mg PO BID Follow up with: MIREILLE FROST NP [Primary Care Provider] - 01/11/24 10:20 am
[2024-01-04] MEDS: NORVASC 5 MG PO ONE (14:40)
[2024-01-04] MEDS: hydroDIURIL 25 MG PO ONE (14:40)
[2024-01-04] MEDS: APRESOLINE 20 MG/ML INJ IV PRN (16:26)
--- NOTE | 2024-01-04 17:55 | PCM.NOTE ---
Date and Time: 01/04/241753 Subjective Assessment: 01/04/24 Ms. MCKENZIE is a 48 year old female with a past medical history significant for hypertension, hyperlipidemia and obesity. She presented to the hospital on 01/03/24 with complaints of chest pain on her L substernal region with radiation to left shoulder. She was initially markedly hypertensive with blood pressures in the 200 range, then received Labetalol IV as well as some morphine and protonix as GI cocktail. Her blood pressure then dropped into the 80s systolically. She is currently resting in bed, awake/alert. Still having some chest pain, rated 4/10 in severity and radiating to her left shoulder. No fever/chills. No palpitations. No shortness of breath. No nausea, vomiting or diarrhea. No dysuria, hematuria or foamy urine. CTA chest negative for PE. Trop x3 negative. Cardiology consulted. Echo ordered as CT shows cardiomegaly. Renal and LUQ US pending. reports she has recurrent episode Q6 months of extremely elevated BP. She is unsure why this happens. It appears cardiology added amlodipine and HCTZ today to decrease BP. Hydralizine gave IV this afternoon as still uncontrolled. US results still pending, and echo results. If BP better controlled may d/c tomorrow. Pt denies Abd pain, SOB, N/V/D. - Review of Systems Constitutional: No Fever, No Chills Eyes: No Symptoms Ears, Nose, & Throat: No Symptoms Respiratory: No Cough, No Short Of Breath Cardiac: Chest Pain, No Edema, No Syncope Abdominal/Gastrointestinal: No Abdominal Pain, No Nausea, No Vomiting, No Diarrhea Genitourinary Symptoms: No Dysuria Musculoskeletal: No Back Pain, No Neck Pain Skin: No Rash Neurological: No Dizziness, No Focal Weakness, No Sensory Changes Psychological: No Symptoms Endocrine: No Symptoms Hematologic/Lymphatic: No Symptoms Immunological/Allergic: No Symptoms Objective Exam General Appearance: no apparent distress, alert Neurologic Exam: alert, oriented x 3, cooperative, normal mood/affect, nml cerebellar function, sensation nml, No motor deficits Skin Exam: normal color, warm, dry Eye Exam: PERRL, EOMI, eyes nml inspection Ears, Nose, Throat Exam: normal ENT inspection, pharynx normal, moist mucous membranes Neck Exam: normal inspection, non-tender, supple, full range of motion Respiratory Exam: normal breath sounds, lungs clear, No respiratory distress Cardiovascular Exam: regular rate/rhythm, normal heart sounds Gastrointestinal/Abdomen Exam: soft, No tenderness, No mass Extremity Exam: normal inspection, normal range of motion Back Exam: normal inspection, normal range of motion, No CVA tenderness, No vertebral tenderness Pelvic Exam: deferred Rectal Exam: deferred Objective Data Vital Signs: Vital Signs - 24 hr Temp Pulse Resp BP BP BP Pulse Ox 01/04/24 17:00 97.9 F 91 H 20 178/82 95 01/04/24 13:57 98 01/04/24 13:00 97.2 F 86 18 160/85 92 L 01/04/24 09:00 98.0 F 93 H 17 157/78 92 L 01/04/24 05:15 183/106 01/04/24 04:40 198/91 98 01/04/24 04:00 97.3 F 81 18 198/91 96 01/04/24 00:45 92 L 01/04/24 00:08 98 F 90 18 185/87 90 L 01/03/24 23:54 96 01/03/24 23:20 83 14 135/78 95 01/03/24 23:14 84 16 123/75 94 L 01/03/24 23:09 81 15 100/62 95 01/03/24 23:07 78 16 94/57 96 01/03/24 23:04 69 15 87/56 96 01/03/24 23:02 66 10 L 82/51 93 L 01/03/24 23:00 59 L 12 85/51 93 L 01/03/24 22:57 59 L 10 L 108/68 93 L 01/03/24 22:50 79 16 135/78 95 01/03/24 22:40 96 H 19 156/92 94 L 01/03/24 22:30 98 H 13 170/102 95 01/03/24 22:20 96 H 15 165/87 97 01/03/24 22:10 101 H 14 174/106 95 01/03/24 22:00 94 H 13 174/112 94 L 01/03/24 21:50 94 H 18 170/98 93 L 01/03/24 21:40 90 13 163/100 93 L 01/03/24 21:31 88 16 155/94 93 L 01/03/24 21:20 90 16 190/112 90 L 01/03/24 21:11 91 H 13 175/113 96 01/03/24 21:01 91 H 21 185/113 95 01/03/24 20:50 98.6 F 87 18 189/102 94 L 01/03/24 20:41 98 H 14 154/95 93 L 01/03/24 20:31 85 18 197/125 95 01/03/24 20:17 95 H 21 204/116 95 01/03/24 20:01 85 16 185/113 96 01/03/24 19:46 88 16 175/123 96 01/03/24 19:45 87 15 94 L 01/03/24 19:40 85 19 95 01/03/24 19:39 86 01/03/24 19:16 174/110 01/03/24 19:00 85 14 194/106 95 01/03/24 18:30 82 16 184/119 96 01/03/24 18:20 97.7 F 90 21 185/108 94 L Pain Assessment - Last Documented Pain Intensity 2 Pain Scale Used 0-10 Pain Scale Intake and Output: Intake & Output 01/02/24 01/03/24 01/04/24 01/05/24 11:59 11:59 11:59 11:59 Intake Total 585 120 Balance 585 120 Weight 78.2 kg Lab Results: Lab Results-Last 24 Hours 01/03/24 01/03/24 01/03/24 Range/Units 18:27 18:27 18:27 WBC 14.5 H (3.98-10.04) x10^3/uL RBC 4.61 (3.93-5.22) x10^6/uL Hgb 14.3 (11.2-15.7) g/dL Hct 42.0 (34.1-44.9) % MCV 91.1 (79.4-94.8) fL MCH 31.0 (25.6-32.2) pg MCHC 34.0 (32.2-35.5) g/dL RDW 12.0 (11.7-14.4) % Plt Count 387 H (182-369) x10^3/uL MPV 9.5 (9.4-12.3) fL Gran % 78.9 H (34.0-71.1) % Immature Gran % (Auto) 0.3 (0.001-0.429) % Nucleat RBC Rel Count 0.0 (0.00-0.2) % Eos # (Auto) 0.14 (0.04-0.36) x10^3/uL Immature Gran # (Auto) 0.05 H (0.001-0.031) x10^3u/L Absolute Lymphs (auto) 2.09 (1.18-3.74) x10^3/uL Absolute Monos (auto) 0.70 (0.24-0.86) x10^3/uL Absolute Nucleated RBC 0.00 (0.00-0.012) x10^3u/L Lymphocytes % 14.4 L (19.3-51.7) % Monocytes % 4.8 (4.7-12.5) % Eosinophils % 1.0 (0.7-5.8) % Basophils % 0.6 (0.1-1.2) % Absolute Granulocytes 11.47 H (1.56-6.13) x10^3/uL Basophils # 0.08 (0.01-0.08) x10^3/uL D-Dimer 0.90 H* (0.0-0.50) mg/L Sodium 137 (135-145) mmol/L Potassium 3.3 L (3.5-5.1) mmol/L Chloride 101 (98-107) mmol/L Carbon Dioxide 25 (22-30) mmol/L Anion Gap 13.5 (5-15) MEQ/L BUN 14 (7-17) mg/dL Creatinine 0.93 (0.52-1.04) mg/dL Estimated GFR 75.8 ML/MIN Glucose 151 H (74-106) mg/dL Calcium 9.4 (8.4-10.2) mg/dL Total Bilirubin 0.40 (0.2-1.3) mg/dL AST 29 (14-36) U/L ALT 34 (0-35) U/L Alkaline Phosphatase 61 (38-126) U/L Troponin I (0.000-0.033) ng/mL Serum Total Protein 7.8 (6.3-8.2) g/dL Albumin 4.4 (3.5-5.0) g/dL Triglycerides (30-150) mg/dL Cholesterol (50-200) mg/dL LDL Cholesterol (30-100) mg/dL HDL Cholesterol (40-60) mg/dL Heart Disease Risk Ratio Amylase (30-110) U/L Lipase (23-300) U/L Serum HCG, Qual (NEGATIVE) Urine Opiates Level (NEGATIVE) Ur Methadone (NEGATIVE) Urine Barbiturates (NEGATIVE) Ur Phencyclidine (PCP) (NEGATIVE) Urine Amphetamine (NEGATIVE) U Benzodiazepine Level (NEGATIVE) Urine Cocaine (NEGATIVE) Urine Marijuana (THC) (NEGATIVE) 01/03/24 01/03/24 01/03/24 Range/Units 18:27 18:27 18:27 WBC (3.98-10.04) x10^3/uL RBC (3.93-5.22) x10^6/uL Hgb (11.2-15.7) g/dL Hct (34.1-44.9) % MCV (79.4-94.8) fL MCH (25.6-32.2) pg MCHC (32.2-35.5) g/dL RDW (11.7-14.4) % Plt Count (182-369) x10^3/uL MPV (9.4-12.3) fL Gran % (34.0-71.1) % Immature Gran % (Auto) (0.001-0.429) % Nucleat RBC Rel Count (0.00-0.2) % Eos # (Auto) (0.04-0.36) x10^3/uL Immature Gran # (Auto) (0.001-0.031) x10^3u/L Absolute Lymphs (auto) (1.18-3.74) x10^3/uL Absolute Monos (auto) (0.24-0.86) x10^3/uL Absolute Nucleated RBC (0.00-0.012) x10^3u/L Lymphocytes % (19.3-51.7) % Monocytes % (4.7-12.5) % Eosinophils % (0.7-5.8) % Basophils % (0.1-1.2) % Absolute Granulocytes (1.56-6.13) x10^3/uL Basophils # (0.01-0.08) x10^3/uL D-Dimer (0.0-0.50) mg/L Sodium (135-145) mmol/L Potassium (3.5-5.1) mmol/L Chloride (98-107) mmol/L Carbon Dioxide (22-30) mmol/L Anion Gap (5-15) MEQ/L BUN (7-17) mg/dL Creatinine (0.52-1.04) mg/dL Estimated GFR ML/MIN Glucose (74-106) mg/dL Calcium (8.4-10.2) mg/dL Total Bilirubin (0.2-1.3) mg/dL AST (14-36) U/L ALT (0-35) U/L Alkaline Phosphatase (38-126) U/L Troponin I < 0.012 (0.000-0.033) ng/mL Serum Total Protein (6.3-8.2) g/dL Albumin (3.5-5.0) g/dL Triglycerides (30-150) mg/dL Cholesterol (50-200) mg/dL LDL Cholesterol (30-100) mg/dL HDL Cholesterol (40-60) mg/dL Heart Disease Risk Ratio Amylase (30-110) U/L Lipase 357 H (23-300) U/L Serum HCG, Qual NEGATIVE (NEGATIVE) Urine Opiates Level (NEGATIVE) Ur Methadone (NEGATIVE) Urine Barbiturates (NEGATIVE) Ur Phencyclidine (PCP) (NEGATIVE) Urine Amphetamine (NEGATIVE) U Benzodiazepine Level (NEGATIVE) Urine Cocaine (NEGATIVE) Urine Marijuana (THC) (NEGATIVE) 01/03/24 01/03/24 01/03/24 Range/Units 18:27 20:30 21:56 WBC (3.98-10.04) x10^3/uL RBC (3.93-5.22) x10^6/uL Hgb (11.2-15.7) g/dL Hct (34.1-44.9) % MCV (79.4-94.8) fL MCH (25.6-32.2) pg MCHC (32.2-35.5) g/dL RDW (11.7-14.4) % Plt Count (182-369) x10^3/uL MPV (9.4-12.3) fL Gran % (34.0-71.1) % Immature Gran % (Auto) (0.001-0.429) % Nucleat RBC Rel Count (0.00-0.2) % Eos # (Auto) (0.04-0.36) x10^3/uL Immature Gran # (Auto) (0.001-0.031) x10^3u/L Absolute Lymphs (auto) (1.18-3.74) x10^3/uL Absolute Monos (auto) (0.24-0.86) x10^3/uL Absolute Nucleated RBC (0.00-0.012) x10^3u/L Lymphocytes % (19.3-51.7) % Monocytes % (4.7-12.5) % Eosinophils % (0.7-5.8) % Basophils % (0.1-1.2) % Absolute Granulocytes (1.56-6.13) x10^3/uL Basophils # (0.01-0.08) x10^3/uL D-Dimer (0.0-0.50) mg/L Sodium (135-145) mmol/L Potassium (3.5-5.1) mmol/L Chloride (98-107) mmol/L Carbon Dioxide (22-30) mmol/L Anion Gap (5-15) MEQ/L BUN (7-17) mg/dL Creatinine (0.52-1.04) mg/dL Estimated GFR ML/MIN Glucose (74-106) mg/dL Calcium (8.4-10.2) mg/dL Total Bilirubin (0.2-1.3) mg/dL AST (14-36) U/L ALT (0-35) U/L Alkaline Phosphatase (38-126) U/L Troponin I < 0.012 (0.000-0.033) ng/mL Serum Total Protein (6.3-8.2) g/dL Albumin (3.5-5.0) g/dL Triglycerides (30-150) mg/dL Cholesterol (50-200) mg/dL LDL Cholesterol (30-100) mg/dL HDL Cholesterol (40-60) mg/dL Heart Disease Risk Ratio Amylase 80 (30-110) U/L Lipase (23-300) U/L Serum HCG, Qual (NEGATIVE) Urine Opiates Level NEGATIVE (NEGATIVE) Ur Methadone NEGATIVE (NEGATIVE) Urine Barbiturates NEGATIVE (NEGATIVE) Ur Phencyclidine (PCP) NEGATIVE (NEGATIVE) Urine Amphetamine NEGATIVE (NEGATIVE) U Benzodiazepine Level NEGATIVE (NEGATIVE) Urine Cocaine NEGATIVE (NEGATIVE) Urine Marijuana (THC) NEGATIVE (NEGATIVE) 01/04/24 01/04/24 01/04/24 Range/Units 04:45 04:45 04:45 WBC 13.8 H (3.98-10.04) x10^3/uL RBC 4.08 (3.93-5.22) x10^6/uL Hgb 12.6 (11.2-15.7) g/dL Hct 38.0 (34.1-44.9) % MCV 93.1 (79.4-94.8) fL MCH 30.9 (25.6-32.2) pg MCHC 33.2 (32.2-35.5) g/dL RDW 12.2 (11.7-14.4) % Plt Count 355 (182-369) x10^3/uL MPV 9.6 (9.4-12.3) fL Gran % (34.0-71.1) % Immature Gran % (Auto) (0.001-0.429) % Nucleat RBC Rel Count (0.00-0.2) % Eos # (Auto) (0.04-0.36) x10^3/uL Immature Gran # (Auto) (0.001-0.031) x10^3u/L Absolute Lymphs (auto) (1.18-3.74) x10^3/uL Absolute Monos (auto) (0.24-0.86) x10^3/uL Absolute Nucleated RBC (0.00-0.012) x10^3u/L Lymphocytes % (19.3-51.7) % Monocytes % (4.7-12.5) % Eosinophils % (0.7-5.8) % Basophils % (0.1-1.2) % Absolute Granulocytes (1.56-6.13) x10^3/uL Basophils # (0.01-0.08) x10^3/uL D-Dimer (0.0-0.50) mg/L Sodium 138 (135-145) mmol/L Potassium 4.1 D (3.5-5.1) mmol/L Chloride 103 (98-107) mmol/L Carbon Dioxide 26 (22-30) mmol/L Anion Gap 12.9 (5-15) MEQ/L BUN 10 (7-17) mg/dL Creatinine 0.77 (0.52-1.04) mg/dL Estimated GFR 95.1 ML/MIN Glucose 120 H (74-106) mg/dL Calcium 8.6 (8.4-10.2) mg/dL Total Bilirubin (0.2-1.3) mg/dL AST (14-36) U/L ALT (0-35) U/L Alkaline Phosphatase (38-126) U/L Troponin I < 0.012 (0.000-0.033) ng/mL Serum Total Protein (6.3-8.2) g/dL Albumin (3.5-5.0) g/dL Triglycerides (30-150) mg/dL Cholesterol (50-200) mg/dL LDL Cholesterol (30-100) mg/dL HDL Cholesterol (40-60) mg/dL Heart Disease Risk Ratio Amylase (30-110) U/L Lipase (23-300) U/L Serum HCG, Qual (NEGATIVE) Urine Opiates Level (NEGATIVE) Ur Methadone (NEGATIVE) Urine Barbiturates (NEGATIVE) Ur Phencyclidine (PCP) (NEGATIVE) Urine Amphetamine (NEGATIVE) U Benzodiazepine Level (NEGATIVE) Urine Cocaine (NEGATIVE) Urine Marijuana (THC) (NEGATIVE) 01/04/24 Range/Units 16:15 WBC (3.98-10.04) x10^3/uL RBC (3.93-5.22) x10^6/uL Hgb (11.2-15.7) g/dL Hct (34.1-44.9) % MCV (79.4-94.8) fL MCH (25.6-32.2) pg MCHC (32.2-35.5) g/dL RDW (11.7-14.4) % Plt Count (182-369) x10^3/uL MPV (9.4-12.3) fL Gran % (34.0-71.1) % Immature Gran % (Auto) (0.001-0.429) % Nucleat RBC Rel Count (0.00-0.2) % Eos # (Auto) (0.04-0.36) x10^3/uL Immature Gran # (Auto) (0.001-0.031) x10^3u/L Absolute Lymphs (auto) (1.18-3.74) x10^3/uL Absolute Monos (auto) (0.24-0.86) x10^3/uL Absolute Nucleated RBC (0.00-0.012) x10^3u/L Lymphocytes % (19.3-51.7) % Monocytes % (4.7-12.5) % Eosinophils % (0.7-5.8) % Basophils % (0.1-1.2) % Absolute Granulocytes (1.56-6.13) x10^3/uL Basophils # (0.01-0.08) x10^3/uL D-Dimer (0.0-0.50) mg/L Sodium (135-145) mmol/L Potassium (3.5-5.1) mmol/L Chloride (98-107) mmol/L Carbon Dioxide (22-30) mmol/L Anion Gap (5-15) MEQ/L BUN (7-17) mg/dL Creatinine (0.52-1.04) mg/dL Estimated GFR ML/MIN Glucose (74-106) mg/dL Calcium (8.4-10.2) mg/dL Total Bilirubin (0.2-1.3) mg/dL AST (14-36) U/L ALT (0-35) U/L Alkaline Phosphatase (38-126) U/L Troponin I (0.000-0.033) ng/mL Serum Total Protein (6.3-8.2) g/dL Albumin (3.5-5.0) g/dL Triglycerides 102 (30-150) mg/dL Cholesterol 169 (50-200) mg/dL LDL Cholesterol 96 (30-100) mg/dL HDL Cholesterol 47 (40-60) mg/dL Heart Disease Risk Ratio 4.0 Amylase (30-110) U/L Lipase (23-300) U/L Serum HCG, Qual (NEGATIVE) Urine Opiates Level (NEGATIVE) Ur Methadone (NEGATIVE) Urine Barbiturates (NEGATIVE) Ur Phencyclidine (PCP) (NEGATIVE) Urine Amphetamine (NEGATIVE) U Benzodiazepine Level (NEGATIVE) Urine Cocaine (NEGATIVE) Urine Marijuana (THC) (NEGATIVE) Radiology Exams: Radiology Procedures Category Date Time Status ARTERIAL ABDOMINAL (RENAL) [US] Routine Exams 01/04/24 00:43 Taken CHEST WITH CONTRAST [CT] Stat Exams 01/03/24 19:13 Completed ECHO W/2D AND DOPPLER [US] Routine Exams 01/04/24 07:46 Taken US ABDOMEN LIMITED [ABDOMINAL-LIMITED] [US] Routine Exams 01/04/24 11:13 Taken Multi-Disciplinary Progress Notes: Multi-Disciplinary Progress Notes 01/04/24 15:42 Case Management Note by Pearl Soto PATIENT DOES NOT HAVE ANY RX INSURANCE- NURSING WILL NEEDS TO CALL AFTER ANY NEW RX SENT TO PHARMACY TO BE SURE THEY ARE AFFORDABLE FOR PATIENT. 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 Admit for observation 2. troponin X 3 negative 3. Pain control with IV narcotic pain medication PRN and tylenol 4. PPI 5. echo 6. cardiology consult Code(s): R07.9 - CHEST PAIN, UNSPECIFIED Code(s): R07.9 - CHEST PAIN, UNSPECIFIED (2) Hypertensive urgency Current Visit: Yes Status: Acute Assessment & Plan: (2) Uncontrolled hypertension Current Visit: Yes Status: Acute Assessment & Plan: Likely exacerbated by pain, but need to rule out secondary causes 1. Continue current bp meds 2. Renal artery doppler 3. Check metanephrines 4. Monitor blood pressure readings 01/03 - cardiology consult - Q4 BP/ vitals ordered this afternoon as BP remaining elevated even with cardiology change in meds - Echo pending - PRN hydralizine. Code(s): I10 - ESSENTIAL (PRIMARY) HYPERTENSION Code(s): I16.0 - HYPERTENSIVE URGENCY (3) Pure hypercholesterolemia Current Visit: Yes Status: Chronic Assessment & Plan: - lipid panel- pending - Not on statin Code(s): E78.00 - PURE HYPERCHOLESTEROLEMIA, UNSPECIFIED (4) Abdominal pain Current Visit: Yes Status: Acute Assessment & Plan: - Abd pain -resolved - Lipase 357 - renal and LUQ abd US pending - labs pending VTE: Lovenox PPI: Protonix Next of Kin: D/C plan: tomorrow Code status: Full Code(s): R10.9 - UNSPECIFIED ABDOMINAL PAIN
--- NOTE | 2024-01-04 18:29 | XRAY ---
Indication: Elevated lipase. Cholecystectomy. Two-dimensional right upper quadrant abdominal sonogram performed. Comparison: None Pancreas not well visualized due to overlying bowel gas. Visualized liver homogeneous in echogenicity. No hepatomegaly or free fluid. Gallbladder surgically absent. Common bile duct measures 5.1 mm. No intrahepatic biliary distention. Right kidney measures 10.5 x 5.6 x 5.2 cm and sonographically unremarkable. Impression: Nonvisualization pancreas. Cholecystectomy. Remaining right upper quadrant sonogram is negative.
--- NOTE | 2024-01-04 18:36 | XRAY ---
Indication: Hypertension. Bilateral renal arterial sonogram performed. Comparison: None PSV abdominal aorta is 52 cm/s. Right kidney measures 10.2 x 5.2 x 5.8 cm without focal solid/cystic renal mass or hydronephrosis. Right renal artery PSV is 62-71 cm/s. RAR is 1.4. Resistive index is 0.6-0.7. Arterial waveforms are negative for tardus parvus. Left kidney measures 10.8 x 5.6 x 4.9 cm and sonographically unremarkable. Left renal artery PSV is 51-71 cm/s. RAR is 1.4. Resistive index is 0.7-0.8. Arterial waveforms are negative for tardus parvus. Impression: Renal artery sonogram is negative for renal artery stenosis.
[2024-01-05] MEDS ORDERED: Apresoline 25 MG TABLET PO PRN (01:24)
[2024-01-05] MEDS: NORCO 5/325 MG PO PRN (01:34)
[2024-01-05 05:50] LABS: Hematocrit 38.2 % (34.1-44.9); Hemoglobin 12.5 g/dL (11.2-15.7); Mean Cell Volume 92.5 fL (79.4-94.8); Mean Corpuscular Hemoglobin 30.3 pg (25.6-32.2); Mean Corpuscular Hgb Concent. 32.7 g/dL (32.2-35.5); Mean Platelet Volume 9.4 fL (9.4-12.3); Platelet Count 364 x10^3/uL (182-369); Red Blood Count 4.13 x10^6/uL (3.93-5.22); Red Cell Distribution Width 12.3 % (11.7-14.4); White Blood Count 17.9 x10^3/uL (3.98-10.04)
[2024-01-05 06:36] LABS: ANION GAP 12.6 MEQ/L (5-15); BILIRUBIN,TOTAL 0.6 mg/dL (0.2-1.3); Calcium 8.9 mg/dL (8.4-10.2); Creatinine 1 1.24 mg/dL (0.52-1.04); EST GLOMERULAR FILTRATION RATE 53.4 ML/MIN; Potassium 4.2 mmol/L (3.5-5.1); Total Protein 7.2 g/dL (6.3-8.2)
[2024-01-05] MEDS ORDERED: NORVASC 5 MG PO SCH (10:00)
[2024-01-05] MEDS: hydroDIURIL 25 MG PO SCH (10:05)
[2024-01-05] MEDS: NORVASC 5 MG PO SCH (10:05)
--- NOTE | 2024-01-05 13:12 | PCM.NOTE ---
Date and Time: 01/05/24 1259 Subjective Assessment: 01/04/24 Ms. MCKENZIE is a 48 year old female with a past medical history significant for hypertension, hyperlipidemia and obesity. She presented to the hospital on 01/03/24 with complaints of chest pain on her L substernal region with radiation to left shoulder. She was initially markedly hypertensive with blood pressures in the 200 range, then received Labetalol IV as well as some morphine and protonix as GI cocktail. Her blood pressure then dropped into the 80s systolically. She is currently resting in bed, awake/alert. Still having some chest pain, rated 4/10 in severity and radiating to her left shoulder. No fever/chills. No palpitations. No shortness of breath. No nausea, vomiting or diarrhea. No dysuria, hematuria or foamy urine. CTA chest negative for PE. Trop x3 negative. Cardiology consulted. Echo ordered as CT shows cardiomegaly. Renal and LUQ US pending. reports she has recurrent episode Q6 months of extremely elevated BP. She is unsure why this happens. It appears cardiology added amlodipine and HCTZ today to decrease BP. Hydralizine gave IV this afternoon as still uncontrolled. US results still pending, and echo results. If BP better controlled may d/c tomorrow. Pt denies Abd pain, SOB, N/V/D. 01/05/24 Pt resting in bed. CP has resolved and today she has RUQ pain and associated back pain in the same area. This is all new today. WBC up at 17.9. Ultrasounds from yesterday negative. Bp continues to be elevated with BP med changes overnight by welder 2nd shift provider. Amlodipine increased to 10mg daily per cardiology recs this AM. However pt stated this is ok temporarily but she will not continue OP as it has caused edema in the past. Metoprolol increased to 100mg BID. Amlodipine to restart at 5mg tomorrow. Hydralazine stopped for now. Will consider restarting if necessary. CT ordered for further evaluation of RUQ and back pain. She does have some edema of her back in the area of pain. She ate 2 bites of eggs this morning therefore testing had to be done this afternoon. She is c/o nausea and med provided. IVF stopped. HCTZ stopped as creat up and Na+ 130. At 4 am 2 different BP readings charted for each arm. This was rechecked this AM by manual BP and both reading were the same in each arm per nurse KRISTINE Crespo. Pt denies CP, SOB, V/D or constipation. She reports she has not had a BM since admission however she also has not ate much. - Review of Systems Constitutional: No Fever, No Chills Eyes: No Symptoms Ears, Nose, & Throat: No Symptoms Respiratory: No Cough, No Short Of Breath Cardiac: No Chest Pain, No Edema, No Syncope Abdominal/Gastrointestinal: Abdominal Pain (RUQ), Nausea, Appetite Changes, No Vomiting, No Diarrhea Genitourinary Symptoms: No Dysuria Musculoskeletal: Back Pain, No Neck Pain Skin: No Rash Neurological: No Dizziness, No Focal Weakness, No Sensory Changes Psychological: No Symptoms Endocrine: No Symptoms Hematologic/Lymphatic: No Symptoms Immunological/Allergic: No Symptoms Objective Exam General Appearance: no apparent distress, alert, obese Neurologic Exam: alert, oriented x 3, cooperative, normal mood/affect, nml cerebellar function, sensation nml, No motor deficits Skin Exam: normal color, warm, dry Eye Exam: PERRL, EOMI, eyes nml inspection Ears, Nose, Throat Exam: normal ENT inspection, pharynx normal, moist mucous membranes Neck Exam: normal inspection, non-tender, supple, full range of motion Respiratory Exam: normal breath sounds, lungs clear, No respiratory distress Cardiovascular Exam: regular rate/rhythm, normal heart sounds Gastrointestinal/Abdomen Exam: soft, tenderness (RUQ with palpation), No mass Extremity Exam: normal inspection, normal range of motion Back Exam: normal range of motion, CVA tenderness (right side and edema), No vertebral tenderness Pelvic Exam: deferred Rectal Exam: deferred Objective Data Vital Signs: Vital Signs - 24 hr Temp Pulse Resp BP BP Pulse Ox 01/05/24 12:00 99.7 F 82 18 160/88 95 01/05/24 10:08 98 01/05/24 08:00 98.7 F 86 18 126/64 93 L 01/05/24 04:00 98.7 F 87 18 101/58 175/85 96 01/05/24 01:00 176/94 01/05/24 00:00 98.8 F 87 18 188/96 96 01/04/24 20:44 97.2 F 100 H 18 175/85 95 01/04/24 20:27 103 H 16 169/90 153/94 98 01/04/24 18:00 97.2 F 86 18 160/85 92 L 01/04/24 17:00 97.9 F 91 H 20 178/82 95 01/04/24 13:00 97.2 F 86 18 160/85 92 L Pain Assessment - Last Documented Pain Intensity 4 Pain Scale Used 0-10 Pain Scale Intake and Output: Intake & Output 01/03/24 01/04/24 01/05/24 01/06/24 11:59 11:59 11:59 11:59 Intake Total 585 2509 Balance 585 2509 Weight 78.2 kg Lab Results: Lab Results-Last 24 Hours 01/04/24 01/05/24 01/05/24 Range/Units 16:15 05:30 05:30 WBC 17.9 H (3.98-10.04) x10^3/uL RBC 4.13 (3.93-5.22) x10^6/uL Hgb 12.5 (11.2-15.7) g/dL Hct 38.2 (34.1-44.9) % MCV 92.5 (79.4-94.8) fL MCH 30.3 (25.6-32.2) pg MCHC 32.7 (32.2-35.5) g/dL RDW 12.3 (11.7-14.4) % Plt Count 364 (182-369) x10^3/uL MPV 9.4 (9.4-12.3) fL Sodium 130 L D (135-145) mmol/L Potassium 4.2 (3.5-5.1) mmol/L Chloride 99 (98-107) mmol/L Carbon Dioxide 23 (22-30) mmol/L Anion Gap 12.6 (5-15) MEQ/L BUN 11 (7-17) mg/dL Creatinine 1.24 H (0.52-1.04) mg/dL Estimated GFR 53.4 ML/MIN Glucose 136 H (74-106) mg/dL Calcium 8.9 (8.4-10.2) mg/dL Total Bilirubin 0.60 (0.2-1.3) mg/dL AST 36 (14-36) U/L ALT 44 H (0-35) U/L Alkaline Phosphatase 67 (38-126) U/L Serum Total Protein 7.2 (6.3-8.2) g/dL Albumin 4.0 (3.5-5.0) g/dL Triglycerides 102 (30-150) mg/dL Cholesterol 169 (50-200) mg/dL LDL Cholesterol 96 (30-100) mg/dL HDL Cholesterol 47 (40-60) mg/dL Heart Disease Risk Ratio 4.0 Lipase 114 (23-300) U/L Radiology Exams: Radiology Procedures Category Date Time Status ABDOMEN AND PELVIS W&WO CONTRA [CT] Stat Exams 01/05/24 08:28 Ordered ARTERIAL ABDOMINAL (RENAL) [US] Routine Exams 01/04/24 00:43 Completed CHEST WITH CONTRAST [CT] Stat Exams 01/03/24 19:13 Completed ECHO W/2D AND DOPPLER [US] Routine Exams 01/04/24 07:46 Taken US ABDOMEN LIMITED [ABDOMINAL-LIMITED] [US] Routine Exams 01/04/24 11:13 Completed Multi-Disciplinary Progress Notes: Multi-Disciplinary Progress Notes 01/04/24 20:48 Radiology Note by FILIBERTO BALTAZAR TRANSHORACIC ECHOCARDIOGRAM 01/04/2024: 1. Moderately dilated right atrium. Other chamber sizes are normal. 2. Mild concentric left ventricular hypertrophy. 3. Normal left ventricular systolic function without focal wall motion abnormalities. Estimated EF 65%. 4. Mild diastolic dysfunction. 5. Normal right ventricular systolic function. 6. Structurally normal valves without valvular regurgitation. 7. Unable to estimate PA systolic pressure. 8. Normal right atrial pressure. 9. No pericardial effusion. Filiberto Baltazar MD [facility] Initialized on 01/04/24 20:48 - END OF NOTE 01/04/24 15:42 Case Management Note by Pearl Soto PATIENT DOES NOT HAVE ANY RX INSURANCE- NURSING WILL NEEDS TO CALL AFTER ANY NEW RX SENT TO PHARMACY TO BE SURE THEY ARE AFFORDABLE FOR PATIENT. 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 [employer]SI STEVEN WELL Initialized on 01/04/24 15:42 - END OF NOTE Assessment/Plan (1) Chest pain Current Visit: Yes Status: Acute Code(s): R07.9 - CHEST PAIN, UNSPECIFIED (2) Uncontrolled hypertension Current Visit: Yes Status: Acute Code(s): I10 - ESSENTIAL (PRIMARY) HYPERTENSION (3) Pure hypercholesterolemia Current Visit: Yes Status: Chronic Code(s): E78.00 - PURE HYPERCHOLESTEROLEMIA, UNSPECIFIED (4) Abdominal pain Current Visit: Yes Status: Acute Assessment & Plan: (1) Chest pain Current Visit: Yes Status: Acute Assessment & Plan: Does not appear to be cardiac with negative troponin and neg CTA chest 1. Admit for observation 2. troponin X 3 negative 3. Pain control with IV narcotic pain medication PRN and tylenol 4. PPI 5. echo 6. cardiology consult 01/04 - resolved Code(s): R07.9 - CHEST PAIN, UNSPECIFIED Code(s): R07.9 - CHEST PAIN, UNSPECIFIED (2) Uncontrolled hypertension Current Visit: Yes Status: Acute Assessment & Plan: Likely exacerbated by pain, but need to rule out secondary causes 1. Continue current bp meds 2. Renal artery doppler 3. Check metanephrines 4. Monitor blood pressure readings 01/03 - cardiology consult - Q4 BP/ vitals ordered this afternoon as BP remaining elevated even with cardiology change in meds - Echo pending - PRN hydralizine. 01/04 - Hydralizine increased by overnight provider- stopped as BP elevated this am - increased metoprolol to 100mg BID - Stopped HCTZ and Na+ 130 and creat 1.24 - pt refuses to take amlodipine 10mg OP- 1 time dose gave this am per cardiology recs until knew she would not take higher dose OP - amlodipine to continue at 5mg Q AM - IVF stopped - Continue lisinopril at same dose Code(s): I10 - ESSENTIAL (PRIMARY) HYPERTENSION Code(s): I16.0 - HYPERTENSIVE URGENCY (3) Pure hypercholesterolemia Current Visit: Yes Status: Chronic Assessment & Plan: - lipid panel- reviewed and controlled - Not on statin - history of hyperlipidemia Code(s): E78.00 - PURE HYPERCHOLESTEROLEMIA, UNSPECIFIED (4) Abdominal pain Current Visit: Yes Status: Acute Assessment & Plan: - Abd pain -resolved - Lipase 357 - renal and LUQ Abd US reviewed and negative - labs pending 01/04 - RUQ pain and associated back pain with edema - CT abd with contrast pending - WBC 17.9 - UA VTE: Lovenox PPI: Protonix Next of Kin: D/C plan: tomorrow Code status: Full Code(s): R10.9 - UNSPECIFIED ABDOMINAL PAIN
[2024-01-05] MEDS: Lopressor 50 MG PO ONE (14:08)
--- NOTE | 2024-01-05 14:28 | XRAY ---
CLINICAL HISTORY: RUQ Pain COMPARISON: No prior studies available for comparison. TECHNIQUE: CT of the abdomen and pelvis was performed with and without IV contrast in axial plane with reconstructed coronal and sagittal images. One of the following dose reduction techniques was utilized for this exam: Automated exposure control, adjustment of the mA and/or kV according to patient size, and use of iterative reconstruction. FINDINGS: Abdomen: Liver: Normal in size, shape, and density.[place]-tail liver seen. No focal lesions, cysts, or masses were identified. Hepatic vasculature and biliary ducts are unremarkable. Gallbladder and Biliary System: The gallbladder is surgically removed. No wall thickening, pericholecystic fluid, or gallstones were identified. The common bile duct is normal in caliber without dilation. Pancreas: Pancreatic head is bulky compared to the body and tail, surrounded with mesentric fat stranding and haziness. The body, and tail are visualized and appear normal in size and density. No pancreatic masses or calcifications were noted. The pancreatic duct is not dilated. Spleen: Normal in size, shape, and density. No splenic lesions or masses were identified. Kidneys and Adrenal Glands: Both kidneys are normal in size, shape, and position. Cortical thickness is within normal limits. No renal calculi or hydronephrosis. Small hypodense lesion seen in the upper pole of right kidney measuring about 4 mm suggesting right renal cyst Adrenal glands are unremarkable with no evidence of masses or hyperplasia. Pelvis: Urinary Bladder: Normal in contour and wall thickness. No intraluminal lesions identified. Uterus: Normal in size and contour. No masses or abnormal thickening. Ovaries: Not well visualized but no gross abnormalities noted. Suggestion of Bilateral follicular cysts noted. Vagina: Normal in contour and wall thickness. Cervix: No evidence of mass or abnormal thickening. Peritoneal and Retroperitoneal Structures: No free fluid or abnormal fluid collections were identified within the abdomen or pelvis. No lymphadenopathy was noted. Bowel: The visualized bowel loops are normal in caliber and appearance. No evidence of bowel obstruction or wall thickening. Descending and sigmoid diverticular disease noted, no signs of diverticulitis. Appendix appears normal. Small fat-containing umbilical hernia noted Bones and Soft Tissues: Pelvic bones and soft tissues are unremarkable. No fractures or abnormal masses were identified. IMPRESSION: Pancreatic head enlargement surrounded with adjacent fat stranding suggesting focal pancreatitits, Groove pancreatitis, with normal body and tail. No collection detected. Non-complicated descending and sigmoid diverticulosis. Small simple right renal cyst[Bosniak type I]. [facility] was called at [phone] at 01:22 PM DIRT SHOVELER, 01/05/2024 Rupal ,Floor [place] was informed regarding the presence of important medical findings in the report. Electronically Signed by: Mario Harris MD. (01/05/2024 14:24:47 EDT)
[2024-01-05 14:46] LABS: Appearance Clear (Clear); Bacteria Rare /HPF (None Seen); Bilirubin Negative (Negative); Blood Small (Negative); Epithelial Cells Rare /HPF (None Seen); Glucose, Urine Negative (Negative); Hyaline Casts NONE SEEN /LPF (0-2); Ketones Negative (Negative); Leukocyte Esterase Trace (Negative); Nitrite Negative (Negative); Protein,Urine Dip Negative (Negative); RBC 0-2 /HPF (0-5); Specific Gravity >=1.030 (1.005-1.030); Urobilinogen 0.2 mg/dL (0.2); WBC 0-2 /HPF (0-5)
[2024-01-05 14:47] LABS: ADD URINE CULTURE? YES (NO)
[2024-01-05] MEDS ORDERED: Hydromorphone 1 mg/ml Injection IV PRN (14:52)
[2024-01-05] MEDS: Lactated Ringers 1,000 ML IV SCH (15:32)
[2024-01-05] MEDS: Hydromorphone 1 mg/ml Injection IV PRN (18:26)
[2024-01-05] MEDS: Zofran 4 MG/2 ML VIAL IV PRN (21:35)
[2024-01-05] MEDS: Toprol Xl 100 MG PO SCH (21:42)
[2024-01-05] MEDS ORDERED: Lopressor 50 MG PO SCH (22:00)
[2024-01-06 05:34] LABS: Hematocrit 36.6 % (34.1-44.9); Hemoglobin 12.1 g/dL (11.2-15.7); Mean Corpuscular Hemoglobin 30.4 pg (25.6-32.2); Mean Corpuscular Hgb Concent. 33.1 g/dL (32.2-35.5); Mean Platelet Volume 9.3 fL (9.4-12.3); Platelet Count 366 x10^3/uL (182-369); Red Blood Count 3.98 x10^6/uL (3.93-5.22); Red Cell Distribution Width 12.6 % (11.7-14.4); White Blood Count 15.2 x10^3/uL (3.98-10.04)
[2024-01-06 05:59] LABS: ALBUMIN 3.8 g/dL (3.5-5.0); ANION GAP 10.5 MEQ/L (5-15); BILIRUBIN,TOTAL 0.5 mg/dL (0.2-1.3); Calcium 8.9 mg/dL (8.4-10.2); Creatinine 1 0.79 mg/dL (0.52-1.04); EST GLOMERULAR FILTRATION RATE 91.6 ML/MIN
[2024-01-06] MEDS: NORVASC 5 MG PO SCH (09:41)
--- NOTE | 2024-01-06 10:41 | PCM.NOTE ---
Date and Time: 01/06/24 1035 Subjective Assessment: 01/04/24 Ms. MCKENZIE is a 48 year old female with a past medical history significant for hypertension, hyperlipidemia and obesity. She presented to the hospital on 01/03/24 with complaints of chest pain on her L substernal region with radiation to left shoulder. She was initially markedly hypertensive with blood pressures in the 200 range, then received Labetalol IV as well as some morphine and protonix as GI cocktail. Her blood pressure then dropped into the 80s systolically. She is currently resting in bed, awake/alert. Still having some chest pain, rated 4/10 in severity and radiating to her left shoulder. No fever/chills. No palpitations. No shortness of breath. No nausea, vomiting or diarrhea. No dysuria, hematuria or foamy urine. CTA chest negative for PE. Trop x3 negative. Cardiology consulted. Echo ordered as CT shows cardiomegaly. Renal and LUQ US pending. reports she has recurrent episode Q6 months of extremely elevated BP. She is unsure why this happens. It appears cardiology added amlodipine and HCTZ today to decrease BP. Hydralizine gave IV this afternoon as still uncontrolled. US results still pending, and echo results. If BP better controlled may d/c tomorrow. Pt denies Abd pain, SOB, N/V/D. 01/05/24 Pt resting in bed. CP has resolved and today she has RUQ pain and associated back pain in the same area. This is all new today. WBC up at 17.9. Ultrasounds from yesterday negative. Bp continues to be elevated with BP med changes overnight by night shift supervisor provider. Amlodipine increased to 10mg daily per cardiology recs this AM. However pt stated this is ok temporarily but she will not continue OP as it has caused edema in the past. Metoprolol increased to 100mg BID. Amlodipine to restart at 5mg tomorrow. Hydralazine stopped for now. Will consider restarting if necessary. CT ordered for further evaluation of RUQ and back pain. She does have some edema of her back in the area of pain. She ate 2 bites of eggs this morning therefore testing had to be done this afternoon. She is c/o nausea and med provided. IVF stopped. HCTZ stopped as creat up and Na+ 130. At 4 am 2 different BP readings charted for each arm. This was rechecked this AM by manual BP and both reading were the same in each arm per nurse KRISTINE Crespo. Pt denies CP, SOB, V/D or constipation. She reports she has not had a BM since admission however she also has not ate much. 01/06/24 Pt resting in bed. She has vomited 2x today. She continues to have RUQ pain. She has been NPO since yesterday. She was dx with pancreatitis yesterday by CT scan results. She denies alcohol use and does not take any meds that could be causing this. She reports he has had similar abd. pain episodes in the past and it resolved within a few days. She has never been told she has pancreatitis in the past. Will continue with the same plan of care today; NPO, IVF, Narcotic pain meds IV, and PRN antiemetics. WBC 15.2 and improved. BP improved with change of meds yesterday. BP increases when pain increases. She will need OP referral to GI at d/c for other possible causes of pancreatitis. Pt denies CP, SOB. - Review of Systems Constitutional: No Fever, No Chills Eyes: No Symptoms Ears, Nose, & Throat: No Symptoms Respiratory: No Cough, No Short Of Breath Cardiac: No Chest Pain, No Edema, No Syncope Abdominal/Gastrointestinal: Abdominal Pain, Nausea, Vomiting, No Diarrhea Genitourinary Symptoms: No Dysuria Musculoskeletal: No Back Pain, No Neck Pain Skin: No Rash Neurological: No Dizziness, No Focal Weakness, No Sensory Changes Psychological: No Symptoms Endocrine: No Symptoms Hematologic/Lymphatic: No Symptoms Immunological/Allergic: No Symptoms Objective Exam General Appearance: no apparent distress, alert Neurologic Exam: alert, oriented x 3, cooperative, normal mood/affect, nml cerebellar function, sensation nml, No motor deficits Skin Exam: normal color, warm, dry Eye Exam: PERRL, EOMI, eyes nml inspection Ears, Nose, Throat Exam: normal ENT inspection, pharynx normal, moist mucous membranes Neck Exam: normal inspection, non-tender, supple, full range of motion Respiratory Exam: normal breath sounds, lungs clear, No respiratory distress Cardiovascular Exam: regular rate/rhythm, normal heart sounds Gastrointestinal/Abdomen Exam: soft, tenderness (RUQ with palpation), No mass Extremity Exam: normal inspection, normal range of motion Back Exam: normal inspection, normal range of motion, No CVA tenderness, No vertebral tenderness Pelvic Exam: deferred Rectal Exam: deferred Objective Data Vital Signs: Vital Signs - 24 hr Temp Pulse Resp BP Pulse Ox 01/06/24 07:24 97.8 F 79 15 141/73 96 01/06/24 03:50 97.9 F 85 17 163/79 96 01/06/24 00:00 98.2 F 89 16 134/68 94 L 01/05/24 19:30 98.2 F 84 18 168/90 95 01/05/24 16:20 98.4 F 90 17 170/87 94 L 01/05/24 13:01 96 01/05/24 12:00 99.7 F 82 18 160/88 95 Pain Assessment - Last Documented Pain Intensity 0 Pain Scale Used 0-10 Pain Scale Intake and Output: Intake & Output 01/03/24 01/04/24 01/05/24 01/06/24 11:59 11:59 11:59 11:59 Intake Total 585 2509 1629 Balance 585 2509 1629 Weight 78.2 kg Lab Results: Lab Results-Last 24 Hours 01/05/24 01/05/24 01/05/24 Range/Units 14:34 15:10 15:10 WBC (3.98-10.04) x10^3/uL RBC (3.93-5.22) x10^6/uL Hgb (11.2-15.7) g/dL Hct (34.1-44.9) % MCV (79.4-94.8) fL MCH (25.6-32.2) pg MCHC (32.2-35.5) g/dL RDW (11.7-14.4) % Plt Count (182-369) x10^3/uL MPV (9.4-12.3) fL Sodium 132 L (135-145) mmol/L Potassium (3.5-5.1) mmol/L Chloride (98-107) mmol/L Carbon Dioxide (22-30) mmol/L Anion Gap (5-15) MEQ/L BUN (7-17) mg/dL Creatinine (0.52-1.04) mg/dL Estimated GFR ML/MIN Glucose (74-106) mg/dL Calcium (8.4-10.2) mg/dL Total Bilirubin (0.2-1.3) mg/dL AST (14-36) U/L ALT (0-35) U/L Alkaline Phosphatase (38-126) U/L Serum Total Protein (6.3-8.2) g/dL Albumin (3.5-5.0) g/dL Lipase 95 (23-300) U/L Urine Color Yellow (Yellow) Urine Appearance Clear (Clear) Urine pH 5.0 (4.6-8.0) Ur Specific [place] >=1.030 A (1.005-1.030) Urine Protein Negative (Negative) Urine Glucose (UA) Negative (Negative) mg/dL Urine Ketones Negative (Negative) Urine Blood Small A (Negative) Urine Nitrite Negative (Negative) Urine Bilirubin Negative (Negative) Urine Urobilinogen 0.2 (0.2) mg/dL Ur Leukocyte Esterase Trace A (Negative) U Hyaline Cast (Auto) NONE SEEN (0-2) /LPF Urine Microscopic RBC 0-2 (0-5) /HPF Urine Microscopic WBC 0-2 (0-5) /HPF Ur Epithelial Cells Rare (None Seen) /HPF Urine Bacteria Rare A (None Seen) /HPF Urine Culture Reflexed YES (NO) 01/06/24 01/06/24 Range/Units 05:29 05:29 WBC 15.2 H (3.98-10.04) x10^3/uL RBC 3.98 (3.93-5.22) x10^6/uL Hgb 12.1 (11.2-15.7) g/dL Hct 36.6 (34.1-44.9) % MCV 92.0 (79.4-94.8) fL MCH 30.4 (25.6-32.2) pg MCHC 33.1 (32.2-35.5) g/dL RDW 12.6 (11.7-14.4) % Plt Count 366 (182-369) x10^3/uL MPV 9.3 L (9.4-12.3) fL Sodium 133 L (135-145) mmol/L Potassium 4.0 (3.5-5.1) mmol/L Chloride 97 L (98-107) mmol/L Carbon Dioxide 30 (22-30) mmol/L Anion Gap 10.5 (5-15) MEQ/L BUN 14 (7-17) mg/dL Creatinine 0.79 (0.52-1.04) mg/dL Estimated GFR 91.6 ML/MIN Glucose 119 H (74-106) mg/dL Calcium 8.9 (8.4-10.2) mg/dL Total Bilirubin 0.50 (0.2-1.3) mg/dL AST 35 (14-36) U/L ALT 46 H (0-35) U/L Alkaline Phosphatase 69 (38-126) U/L Serum Total Protein 7.0 (6.3-8.2) g/dL Albumin 3.8 (3.5-5.0) g/dL Lipase (23-300) U/L Urine Color (Yellow) Urine Appearance (Clear) Urine pH (4.6-8.0) Ur Specific [place] (1.005-1.030) Urine Protein (Negative) Urine Glucose (UA) (Negative) mg/dL Urine Ketones (Negative) Urine Blood (Negative) Urine Nitrite (Negative) Urine Bilirubin (Negative) Urine Urobilinogen (0.2) mg/dL Ur Leukocyte Esterase (Negative) U Hyaline Cast (Auto) (0-2) /LPF Urine Microscopic RBC (0-5) /HPF Urine Microscopic WBC (0-5) /HPF Ur Epithelial Cells (None Seen) /HPF Urine Bacteria (None Seen) /HPF Urine Culture Reflexed (NO) Radiology Exams: Radiology Procedures Category Date Time Status ABDOMEN AND PELVIS W&WO CONTRA [CT] Stat Exams 01/05/24 08:28 Completed US ABDOMEN LIMITED [ABDOMINAL-LIMITED] [US] Routine Exams 01/04/24 11:13 Completed Assessment/Plan (1) Pancreatitis Current Visit: Yes Status: Acute Assessment & Plan: - NPO, bowel rest, IVF, narcotic pain meds, antiemetics - CP was referred pain- this has resolved - Lipase 95 on - Continued RUQ pain with N/V that started yesterday - Abd US 01/03 Impression: Nonvisualization pancreas. Cholecystectomy. Remaining right upper quadrant sonogram is negative - Renal US 01/03 Impression: Renal artery sonogram is negative for renal artery stenosis. - CT abd 01/05/24 IMPRESSION: Pancreatic head enlargement surrounded with adjacent fat stranding suggesting focal pancreatitits, Groove pancreatitis, with normal body and tail. No collection detected. Non-complicated descending and sigmoid diverticulosis. Small simple right renal cyst[Bosniak type I]. Code(s): K85.90 - ACUTE PANCREATITIS WITHOUT NECROSIS OR INFECTION, UNSP (2) Abdominal pain Current Visit: Yes Status: Acute Assessment & Plan: - Abd pain -resolved - Lipase 357 on admission - renal and LUQ abd US negative for acute concern - Lipase 95 -01/04 - See CT results above - Dx with pancreatitis on CXT 01/04 - see plan above for pancreatitis Code(s): R10.9 - UNSPECIFIED ABDOMINAL PAIN (3) Chest pain Current Visit: Yes Status: Acute Assessment & Plan: Does not appear to be cardiac with negative troponin and neg CTA chest 1. Admit for observation 2. troponin X 3 negative 3. Pain control with IV narcotic pain medication PRN and tylenol 4. PPI 5. echo EF 65% 6. cardiology consult- reviwed note and agree with plan of care 7. CP was actually referred pain- which has now resolved Code(s): R07.9 - CHEST PAIN, UNSPECIFIED (4) Uncontrolled hypertension Current Visit: Yes Status: Acute Assessment & Plan: Likely exacerbated by pain, but need to rule out secondary causes 1. Continue current bp meds 2. Renal artery doppler 3. Check metanephrines 4. Monitor blood pressure readings 01/03 - cardiology consult - Q4 BP/ vitals ordered this afternoon as BP remaining elevated even with cardiology change in meds - Echo pending - PRN hydralizine. 01/04 - Hydralizine increased by overnight provider- stopped as BP elevated this am - increased metoprolol to 100mg BID - Stopped HCTZ and Na+ 130 and creat 1.24 - pt refuses to take amlodipine 10mg OP- 1 time dose gave this am per cardiology recs until knew she would not take higher dose OP - amlodipine to continue at 5mg Q AM - IVF stopped - Continue lisinopril at same dose 01/05 - BP improved with change in meds yesterday - BP increases with increased pain- PRN narcotic pain meds continued for pancreatitis Code(s): I10 - ESSENTIAL (PRIMARY) HYPERTENSION (5) Pure hypercholesterolemia Current Visit: Yes Status: Resolved Assessment & Plan: - lipid panel- reviewed and controlled - Not on statin - history of hyperlipidemia VTE: Lovenox PPI: Protonix Next of Kin: D/C plan: when sxs improved Code status: Full Code(s): E78.00 - PURE HYPERCHOLESTEROLEMIA, UNSPECIFIED
[2024-01-07 04:45] LABS: Hematocrit 35.5 % (34.1-44.9); Hemoglobin 12.1 g/dL (11.2-15.7); Mean Cell Volume 91.7 fL (79.4-94.8); Mean Corpuscular Hemoglobin 31.3 pg (25.6-32.2); Mean Corpuscular Hgb Concent. 34.1 g/dL (32.2-35.5); Mean Platelet Volume 9.3 fL (9.4-12.3); Platelet Count 372 x10^3/uL (182-369); Red Blood Count 3.87 x10^6/uL (3.93-5.22); Red Cell Distribution Width 12.1 % (11.7-14.4); White Blood Count 11.5 x10^3/uL (3.98-10.04)
[2024-01-07 05:21] LABS: ALBUMIN 3.5 g/dL (3.5-5.0); ANION GAP 12.2 MEQ/L (5-15); BILIRUBIN,TOTAL 0.5 mg/dL (0.2-1.3); Calcium 8.5 mg/dL (8.4-10.2); Creatinine 1 0.68 mg/dL (0.52-1.04); EST GLOMERULAR FILTRATION RATE 106.7 ML/MIN; Potassium 3.5 mmol/L (3.5-5.1); Total Protein 6.7 g/dL (6.3-8.2)
--- NOTE | 2024-01-07 05:24 | PCM.NOTE ---
Date and Time: 01/07/24520 Subjective Assessment: Ms. MCKENZIE is a 48 year old female with a pmhx of HTN, HLD, and obesity admitted 01/03/24 with CP and hypertensive urgency after experiencing chest pain on her L substernal region with radiation to left shoulder. She was initially markedly hypertensive with blood pressures in the 200 range, then received Labetalol IV as well as some morphine and protonix as GI cocktail. CTA chest negative for PE. Incidental cardiomegaly. she was treated with Labetalol followed by morphine sulfate 4mg IVP. Her SBP dropped into 80s 2 hours later. She felt light-headed and her chest discomfort was temporarily gone. She was given one liter of normal saline with increase in her BP and return of her chest discomforts. Trop x3 negative. ECHO with EF 65%. Cardiology consulted -evidence of hypertensive heart disease with mild LVH and mild diastolic dysfunction. No evidence of mitral valve disease on echo (no evidence of MVP or MR). Initially recommended HCTZ 12.5 mg daily and amlodipine 5 mg daily. History of LE edema on unknown dose of amlodipine and discontinued clonidine due to its side effect profile. Patient however refused amlodipine 10mg due to her LE edema and HCTZ discontinued due to NANCI. Metoprolol was increased to 100mg BID with noted improvement. CT ordered for further evaluation of RUQ and back pain and showed pancreatitis. Patient has been started on NPO, bowel rest, IVF, narcotic pain meds, antiemetics. Objective Data Vital Signs: Vital Signs - 24 hr Temp Pulse Resp BP Pulse Ox 01/07/24 04:00 97.7 F 87 19 175/90 90 L 01/07/24 00:00 18 01/06/24 23:36 98.6 F 86 16 171/89 96 01/06/24 20:00 98.6 F 85 18 137/73 92 L 01/06/24 16:00 96.8 F 83 16 142/70 94 L 01/06/24 12:00 15 01/06/24 11:27 97 F 88 15 139/69 91 L 01/06/24 07:24 97.8 F 79 15 141/73 96 Pain Assessment - Last Documented Pain Intensity 6 Pain Scale Used 0-10 Pain Scale Intake and Output: Intake & Output 01/04/24 01/05/24 01/06/24 01/07/24 11:59 11:59 11:59 11:59 Intake Total 586 9955 1628 2381 Balance 585 6733 1623 2382 Weight 78.2 kg Lab Results: Lab Results-Last 24 Hours 01/06/24 01/06/24 01/07/24 Range/Units 05:29 05:29 04:28 WBC 15.2 H 11.5 H (3.98-10.04) x10^3/uL RBC 3.98 3.87 L (3.93-5.22) x10^6/uL Hgb 12.1 12.1 (11.2-15.7) g/dL Hct 36.6 35.5 (34.1-44.9) % MCV 92.0 91.7 (79.4-94.8) fL MCH 30.4 31.3 (25.6-32.2) pg MCHC 33.1 34.1 (32.2-35.5) g/dL RDW 12.6 12.1 (11.7-14.4) % Plt Count 366 372 H (182-369) x10^3/uL MPV 9.3 L 9.3 L (9.4-12.3) fL Sodium 133 L (135-145) mmol/L Potassium 4.0 (3.5-5.1) mmol/L Chloride 97 L (98-107) mmol/L Carbon Dioxide 30 (22-30) mmol/L Anion Gap 10.5 (5-15) MEQ/L BUN 14 (7-17) mg/dL Creatinine 0.79 (0.52-1.04) mg/dL Estimated GFR 91.6 ML/MIN Glucose 119 H (74-106) mg/dL Calcium 8.9 (8.4-10.2) mg/dL Total Bilirubin 0.50 (0.2-1.3) mg/dL AST 35 (14-36) U/L ALT 46 H (0-35) U/L Alkaline Phosphatase 69 (38-126) U/L Serum Total Protein 7.0 (6.3-8.2) g/dL Albumin 3.8 (3.5-5.0) g/dL Radiology Exams: Radiology Procedures Category Date Time Status ABDOMEN AND PELVIS W&WO CONTRA [CT] Stat Exams 01/05/24 08:28 Completed Assessment/Plan (1) Pancreatitis Current Visit: Yes Status: Acute Assessment & Plan: - CT abd 01/05/24 suggesting focal pancreatitis - NPO, bowel rest, IVF, narcotic pain meds, antiemetics - CP was referred pain- this has resolved - Lipase 95 on - Abd US 01/03 Impression: Nonvisualization pancreas. Cholecystectomy. Remaining right upper quadrant sonogram is negative - Renal US 01/03 Impression: Renal artery sonogram is negative for renal artery stenosis. Code(s): K85.90 - ACUTE PANCREATITIS WITHOUT NECROSIS OR INFECTION, UNSP (2) Abdominal pain Current Visit: Yes Status: Acute Assessment & Plan: - / to pancreatitis see plan Code(s): R10.9 - UNSPECIFIED ABDOMINAL PAIN (3) Hypertensive urgency Current Visit: Yes Status: Acute Assessment & Plan: -Likely exacerbated by pain, but need to rule out secondary causes -Cardiology consulted Initially recommended HCTZ 12.5 mg daily and amlodipine 5 mg daily. History of LE edema on unknown dose of amlodipine and discontinued clonidine due to its side effect profile. Patient however refused amlodipine 10mg due to her LE edema and Amlodipine 5mg resumed -HCTZ discontinued due to NANCI. -Metoprolol was increased to 100mg BID with noted improvement. Code(s): I16.0 - HYPERTENSIVE URGENCY (4) Chest pain Current Visit: Yes Status: Acute Assessment & Plan: Does not appear to be cardiac with negative troponin and neg CTA chest -has resolved -Appears to be secondary to pancreatitis - troponin X 3 negative -Cardiology consulted: Cardiology consulted -evidence of hypertensive heart disease with mild LVH and mild diastolic dysfunction. No evidence of mitral valve disease on echo (no evidence of MVP or MR). EF 65% -cardiology consult- reviewed note and agree with plan of care Code(s): R07.9 - CHEST PAIN, UNSPECIFIED (5) Pure hypercholesterolemia Current Visit: Yes Status: Resolved Assessment & Plan: - lipid panel- reviewed and controlled - Not on statin - history of hyperlipidemia VTE: Lovenox PPI: Protonix Next of Kin: D/C plan: when sxs improved Code status: Full Code(s): E78.00 - PURE HYPERCHOLESTEROLEMIA, UNSPECIFIED
[2024-01-07 08:48] VITALS: O2SAT 93
[2024-01-07] MEDS: Klor Con PO SCH (10:17)
[2024-01-07] MEDS: CARDURA 2 MG PO ONE (12:05)
[2024-01-07 12:31] VITALS: BP 175/90; PULSE 86; TEMP 97.3
--- NOTE | 2024-01-07 13:32 | PCM.DS ---
Discharge Summary Date of Admission: 01/03/24 23:48 Date of Discharge: 01/07/24 Admitting Physician: KIET RAI MD Consults: Consults on Case 01/04/24 00:23 Case Management SDOH DC Needs Assessment ROUTINE 01/04/24 11:16 Consult Cardiology ROUTINE Primary Care Provider: MIREILLE FROST Allergies Allergies No Known Drug Allergies Allergy (Verified 01/04/24 00:03) Hospital Summary - Hospital Course Hospital Course: Ms. MCKENZIE is a 48 year old female with a pmhx of HTN, HLD, and obesity admitted 01/03/24 with CP and hypertensive urgency after experiencing chest pain on her L substernal region with radiation to left shoulder. She was initially markedly hypertensive with blood pressures in the 200 range, then received Labetalol IV as well as some morphine and protonix as GI cocktail. CTA chest negative for PE. Incidental cardiomegaly. she was treated with Labetalol followed by morphine sulfate 4mg IVP. Her SBP dropped into 80s 2 hours later. She felt light-headed and her chest discomfort was temporarily gone. She was given one liter of normal saline with increase in her BP and return of her chest discomforts. Trop x3 negative. ECHO with EF 65%. Cardiology consulted -evidence of hypertensive heart disease with mild LVH and mild diastolic dysfunction. No evidence of mitral jet ve disease on echo (no evidence of MVP or MR). Initially recommended HCTZ 12.5 mg daily and amlodipine 5 mg daily. History of LE edema on unknown dose of amlodipine and discontinued clonidine due to its side effect profile. Patient however refused amlodipine 10mg due to her LE edema and HCTZ discontinued due to NANCI. Metoprolol was increased to 100mg BID with noted improvement. Doxazosin added. CT ordered for further evaluation of RUQ and back pain and showed pancreatitis.IP treatment with bowel rest, IVF, narcotic pain meds, antiemetics. Patient no longer with N/V - abdominal pain/CP - Labs and vitals stable. Able to tolerate a diet. Requesting discharge. Discharge Note New Diagnosis: Pancreatitis/hypertensive urgency New Medications: amlodipine/doxazosin/metoprolol Follow Up: PCP/GI Latest Assessment & Plan 1) Pancreatitis Current Visit: Yes Status: Acute Assessment & Plan: - CT abd 01/05/24 suggesting focal pancreatitis - NPO, bowel rest, IVF, narcotic pain meds, antiemetics - CP was referred pain- this has resolved - Lipase 95 on - Abd US 01/03 Impression: Nonvisualization pancreas. Cholecystectomy. Remaining right upper quadrant sonogram is negative - Renal US 01/03 Impression: Renal artery sonogram is negative for renal artery stenosis. 01/06: -tolerating diet with no N/V -GI follow up as OP Code(s): K85.90 - ACUTE PANCREATITIS WITHOUT NECROSIS OR INFECTION, UNSP (2) Abdominal pain Current Visit: Yes Status: Acute Assessment & Plan: - 2/2 to pancreatitis see plan 01/06: -resolved Code(s): R10.9 - UNSPECIFIED ABDOMINAL PAIN (3) Hypertensive urgency Current Visit: Yes Status: Acute Assessment & Plan: -Likely exacerbated by pain, but need to rule out secondary causes -Cardiology consulted Initially recommended HCTZ 12.5 mg daily and amlodipine 5 mg daily. History of LE edema on unknown dose of amlodipine and discontinued clonidine due to its side effect profile. Patient however refused amlodipine 10mg due to her LE edema and Amlodipine 5mg resumed -HCTZ discontinued due to NANCI. -Metoprolol was increased to 100mg BID with noted improvement. -Add doxazosin 2mg at [facility] Code(s): I16.0 - HYPERTENSIVE URGENCY (4) Chest pain Current Visit: Yes Status: Acute Assessment & Plan: Does not appear to be cardiac with negative troponin and neg CTA chest -has res olved -Appears to be secondary to pancreatitis - troponin X 3 negative -Cardiology consulted: Cardiology consulted -evidence of hypertensive heart disease with mild LVH and mild diastolic dysfunction. No evidence of mitral valve disease on echo (no evidence of MVP or MR). EF 65% -cardiology consult- reviewed note and agree with plan of care 01/06: -Resolved Code(s): R07.9 - CHEST PAIN, UNSPECIFIED (5) Pure hypercholesterolemia Current Visit: Yes Status: Resolved Assessment & Plan: - lipid panel- reviewed and controlled - Not on statin - history of hyperlipidemia VTE: Lovenox PPI: Protonix Next of Kin: D/C plan: when sxs improved Code status: Full Code(s): E78.00 - PURE HYPERCHOLESTEROLEMIA, UNSPECIFIED I spent 35 minutes [id number] with the patient on the day of discharge performing discharge exam, discussing hospital stay and discharge instructions with patient and caregivers, preparation of discharge records, prescriptions & referral forms and addressing any questions/concerns the patient had as documented above. - Vitals & Intake/Output Vital Signs: Vital Signs Temperature 97.3 F 01/07/24 12:00 Pulse Rate 86 01/07/24 12:00 Respiratory Rate 18 01/07/24 12:00 Blood Pressure 175/90 01/07/24 12:00 O2 Sat by Pulse Oximetry 93 L 01/07/24 12:00 Intake & Output: Intake & Output 01/05/24 01/06/24 01/07/24 01/08/24 11:59 11:59 11:59 11:59 Intake Total 2509 1629 2620 Balance 2509 1629 2620 - Lab Result Diagrams: 01/07/24 04:28 01/07/24 04:28 Lab Results-Last 24 Hrs: Lab Results-Last 24 Hours 01/07/24 01/07/24 Range/Units 04:28 04:28 WBC 11.5 H (3.98-10.04) x10^3/uL RBC 3.87 L (3.93-5.22) x10^6/uL Hgb 12.1 (11.2-15.7) g/dL Hct 35.5 (34.1-44.9) % MCV 91.7 (79.4-94.8) fL MCH 31.3 (25.6-32.2) pg MCHC 34.1 (32.2-35.5) g/dL RDW 12.1 (11.7-14.4) % Plt Count 372 H (182-369) x10^3/uL MPV 9.3 L (9.4-12.3) fL Sodium 134 L (135-145) mmol/L Potassium 3.5 (3.5-5.1) mmol/L Chloride 97 L (98-107) mmol/L Carbon Dioxide 28 (22-30) mmol/L Anion Gap 12.2 (5-15) MEQ/L BUN 11 (7-17) mg/dL Creatinine 0.68 (0.52-1.04) mg/dL Estimated GFR 106.7 ML/MIN Glucose 91 (74-106) mg/dL Calcium 8.5 (8.4-10.2) mg/dL Total Bilirubin 0.50 (0.2-1.3) mg/dL AST 29 (14-36) U/L ALT 44 H (0-35) U/L Alkaline Phosphatase 77 (38-126) U/L Serum Total Protein 6.7 (6.3-8.2) g/dL Albumin 3.5 (3.5-5.0) g/dL Micro Results-Entire Visit: Microbiology 01/05/24 14:34 Urine Culture - Final Urine, Void NO GROWTH - Procedures and Test Procedures and Tests throughout Hospitalization: Therapy Orders & Screens 01/03/24 23:55 Respiratory Therapy Consult ONCE Comment: Reason For Exam: 01/04/24 00:19 EKG PRN Comment: Discharge Exam General Appearance: no apparent distress Neurologic Exam: alert, oriented x 3, cooperative Eye Exam: PERRL Ears, Nose, Throat Exam: normal ENT inspection Neck Exam: normal inspection Respiratory Exam: normal breath sounds Cardiovascular Exam: regular rate/rhythm, normal heart sounds Gastrointestinal/Abdomen Exam: soft, normal bowel sounds Pelvic Exam: deferred Rectal Exam: deferred Back Exam: normal inspection Extremity Exam: normal inspection Skin Exam: normal color Final Diagnosis/Problem List - Final Discharge Diagnosis/Problem (1) Pancreatitis Current Visit: Yes Status: Resolved Code(s): K85.90 - ACUTE PANCREATITIS WITHOUT NECROSIS OR INFECTION, UNSP (2) Abdominal pain Current Visit: Yes Status: Resolved Code(s): R10.9 - UNSPECIFIED ABDOMINAL PAIN (3) Hypertensive urgency Current Visit: Yes Status: Resolved Code(s): I16.0 - HYPERTENSIVE URGENCY (4) Chest pain Current Visit: Yes Status: Resolved Code(s): R07.9 - CHEST PAIN, UNSPECIFIED (5) Pure hypercholesterolemia Current Visit: Yes Status: Chronic Code(s): E78.00 - PURE HYPERCHOLESTEROLEMIA, UNSPECIFIED - Discharge Disposition: Home, Self-Care Condition: Stable Prescriptions: New Doxazosin Mesylate 2 mg [Cardura 2 mg] 2 mg PO QHS 30 Days #30 tablet Amlodipine Besylate 5 mg [Norvasc 5 mg] 5 mg PO QAM 30 Days #30 tablet Metoprolol Succinate 100 mg [Toprol Xl 100 MG] 100 mg PO BID 30 Days #60 tablet Hydrocodone/Acetaminophen [Hydrocodone-Acetamin 5-325 mg] 1 tab PO Q4HPRN PRN 3 Days #18 tablet MDD 6 PRN Reason: Pain Continue lisinopriL [Lisinopril] 40 mg PO DAILY Discontinued Metoprolol Tartrate 50 mg [Lopressor 50 MG] 50 mg PO BID Follow up with: MIREILLE FROST NP [Primary Care Provider] - 01/11/24 10:20 am QI JIMENEZ NP [NON-STAFF PHY W/O PRIVILEGES] - 05/01/24 9:30 am
[2024-01-07 13:56] VITALS: RESP 16
[2024-01-08] MEDS ORDERED: CARDURA 2 MG PO SCH (22:00)
== END 2024-01-07 14:52 | disposition home or self-care (01) ==
LOC: ED 17:57 → MED SURG 23:48
PROVIDERS: ADMIT Internal Medicine Nephrology; ATTEND Internal Medicine Nephrology
DX: K85.90 Acute pancreatitis without necrosis or infection, unspecified (principal); R10.9 Unspecified abdominal pain; I16.0 Hypertensive urgency; R07.9 Chest pain, unspecified; R60.0 Localized edema; E78.00 Pure hypercholesterolemia, unspecified; I05.9 Rheumatic mitral valve disease, unspecified; E78.5 Hyperlipidemia, unspecified; E66.9 Obesity, unspecified; R11.10 Vomiting, unspecified; Z79.899 Other long term (current) drug therapy
CPT/HCPCS: 36000; 36415; 71260; 74178; 76705; 80048; 80053; 80061; 80307; 81001; 82150; 83690; 83721; 83835; 84295; 84484; 84703; 85025; 85027; 85379; 87086; 93005; 93041; 93306; 93975; 96374; 96375; 99285; Q3014; 93268; J0360; J1170; J1650; J2270; J2405; A9270-GY; G0378